=== PATIENT | male | born 1965 | race Two or more races ===

== ENCOUNTER 2025-02-17 13:36 | Inpatient (IN) | payer OTHER ==
[~2025-02-17] VITALS: Ht 170.2 cm; Wt 95.6 kg
[2025-02-17] VITALS (43 sets, daily range): BP systolic 82–130; BP diastolic 32–62; PULSE 60–89; RESP 10–25; TEMP 97.5–98.6; O2SAT 88–100
--- NOTE | 2025-02-17 13:56 | ED.PDOC ---
History of Present Illness HPI Comments 59-year-old male is brought in by ambulance from [facility] for chief complaint of generalized weakness. Per EMS report, patient began, suddenly, endorsing on feeling weak 20 minutes into his schedule dialysis session, today. On scene vitals were noted to have been stable within normal limits, with exception of patient being tachycardic and having a blood glucose 188. Patient was also noted to has been pale on scene. Significant medical history of ESRD w/HD on //WED, 3x CABG, DM , HTN, and left BKA s/p necrotizing ulcer wound and sepsis. Recent three day history of diarrhea, with associated dry mouth, and missing his dialysis session, this week. Patient denies having any chest pain, shortness a breath, nausea, vomiting, fever, chills, or further associated symptoms. Time Seen by MD: 13:40 Reviewed Notes: Nurses Notes, Ware Tester Notes, Medications, Allergies Allergies: Coded Allergies: Methoxyl Polyethylene Glycol-Epoeti (Verified Allergy, Intermediate, URTICARIA, 02/17/25) Information Source: Patient, Emergency Med Personnel Mode of Arrival: EMS Severity: Moderate Past Medical History PAST MEDICAL HISTORY: DM, ESRD (With hemodialysis on Wednesday, , and Wednesday), HTN Surgical History: CABG (3x) Social History Smoker: Non-Smoker Alcohol: Denies ETOH Use Drugs: Denies Drug Use Lives In: Home All Other Systems: Reviewed and Negative (Comprehensive review of systems are negative unless otherwise stated in HPI) Physical Exam General Appearance: Moderate Distress HEENT: Normal ENT Inspection, Pharynx Normal, TMs Normal Neck: Full Range of Motion, Non-Tender, Normal, Normal Inspection Respiratory: Chest Non-Tender, Lungs Clear, No Accessory Muscle Use, No Respiratory Distress, Normal Breath Sounds Cardiovascular: No Edema, No JVD, No Murmur, No Gallop, Normal Peripheral Pulses, Regular Rate/Rhythm Breast Exam: Deferred Gastrointestinal: Other (Darker stool possible GI bleed) Genitalia: Deferred Pelvic: Deferred Rectal: Deferred Extremities: Other (Left below-knee amputation) Musculoskeletal : Apperance: Normal Neurologic: Alert, No Motor Deficits, No Sensory Deficits Cerebellar Function: NOT DONE Reflexes: NOT DONE Skin: Normal Color Peripheral Pulses: 3+ Radial (R), 3+ Radial (L) Lymphatic: No Adenopathy Was a procedure done? Was a procedure done?: Yes Sedation Sedation?: Yes Informed consent obtained: Yes Sedation start time: 14:00 Sedation end time: 14:20 Sedation total time: 20min Central Line Recorder of insertion practice: Dot Compliance Manager Occupation of provider network analyst: Attending Physician Indication: Inability to obtain IV Room prepared for procedure: Yes Dot Compliance Manager performed hand hygien: Yes Maximal sterile barrier precau: Mask/Eye shield, Sterile gown, Cap, Sterlie gloves, Large sterlie drape Skin Preparation: Chlorhexidine gluconate, Providine iodine, Alcohol Skin preparation completely dr: Yes Insertion site: Right, Internal jugular Central line catheter type: [id number] dialysis Number of lumens: 3 Central line exchanged over a: Yes Antiseptic ointment applied to: Yes Post Assessment: Chest X-Ray, Proper placement Informed consent obtained: Yes Risks/benefits/alt described: Yes EKG EKG : Pulse Rate (adult): 83 [place]: Normal Cardiac Rhythm: NSR Block: None Hypertrophy: None ST: New (Depression) Differential Dx Considerations may include: Mi, PE, ACS, URI, pneumonia, angina, anxiety, gastritis, gastroenteritis, cholelithiasis, among other X-Ray, Labs, Meds, VS Vital Signs Date Time Temp Pulse Resp B/P (MAP) Pulse Ox O2 Delivery O2 Flow Rate FiO2 02/17/25 14:57 98.0 75 16 131/67 95 98.0 02/17/25 13:56 83 02/17/25 13:39 83 Lab Test 02/17/25 15:15 02/17/25 14:20 Range/Units Iron Level 86 65-175 ug/dL Total Iron Binding Capacity 120 L 250-425 ug/dL Percent Iron Saturation 71.7 H 20-55 % White Blood Count 8.5 4.4-10.8 10^3/uL Red Blood Count 1.45 L 4.5-5.90 10^6/uL Hemoglobin 5.0 *L 13.5-17.5 g/dL Hematocrit 14.6 L 41.0-53.0 % Mean Corpuscular Volume 100.7 H 80.0-100.0 fL Mean Corpuscular Hemoglobin 34.9 H 28.0-32.0 pg Mean Corpuscular Hemoglobin Concent 34.7 32.0-36.0 g/dL Red Cell Distribution Width 15.4 H 11.8-14.3 % Platelet Count 296 140-450 10^3/uL Mean Platelet Volume 8.5 6.9-10.8 fL Neutrophils (%) (Auto) 78.1 37.0-80.0 % Lymphocytes (%) (Auto) 13.7 10.0-50.0 % Monocytes (%) (Auto) 6.9 0.0-12.0 % Eosinophils (%) (Auto) 0.8 0.0-7.0 % Basophils (%) (Auto) 0.5 0.0-2.0 % Neutrophils # (Auto) 6.6 1.6-8.6 10 ^3/uL Lymphocytes # (Auto) 1.2 0.4-5.4 10 ^3/uL Monocytes # (Auto) 0.6 0-1.3 10 ^3/uL Eosinophils # (Auto) 0.1 0-0.8 10 ^3/uL Basophils # (Auto) 0 0-0.2 10 ^3/uL Nucleated Red Blood Cells 0.0 % Platelet Estimate Adequate Anisocytosis (manual) Slight Macrocytosis Slight Prothrombin Time 12.1 H 9.3-11.8 sec Prothrombin Time INR 1.16 H 0.9-1.15 Activated Partial Thromboplast Time 23.1 L 24.5-34.5 SEC Sodium Level 138 136-145 mmol/L Potassium Level 3.8 3.5-5.1 mmol/L Chloride Level 93 L 98-107 mmol/L Carbon Dioxide Level 28 20-31 mmol/L Anion Gap 17 H 5-15 Blood Urea Nitrogen 19 9-23 mg/dL Creatinine 3.90 H 0.700-1.30 mg/dL Glomerular Filtration Rate Calc 17 >90 mL/min BUN/Creatinine Ratio 4.9 L 10.0-20.0 Serum Glucose 70 L 74-106 mg/dL Calcium Level 8.4 L 8.7-10.4 mg/dL Total Bilirubin 0.3 0.2-1.0 mg/dL Aspartate Amino Transferase (AST) 17 13-40 U/L Alanine Aminotransferase (ALT) < 9 7-40 U/L Alkaline Phosphatase 87 46-116 U/L Troponin I High Sensitivity 1465 *H </=54 ng/L Total Protein 6.7 5.7-8.2 g/dL Albumin 3.4 3.2-4.8 g/dL Patient alert. Came in because of generalized weakness. Was at dialysis center. Answering questions. He does have GI bleed. Hemoglobin low. Was given blood. EKG does show STEMI. Contacted Cardiology. Could not give blood thinner. Cardiac marker elevated. Explained to the patient. Continue monitoring. Time of 1ST Reevaluation: 14:10 Reevaluation 1ST: Unchanged Patient Education/Counseling: Diagnosis, Treatment, Other (Need for admission) Family Education/Counseling: No Family Present SEPSIS Sepsis Screen Physician Orders Electrocardigram (02/17/25 13:55) Electrocardigram (02/17/25 14:55) Electrocardigram (02/17/25 16:55) Cl Left Heart Cath (02/17/25 14:03) Chest Portable (02/17/25 14:24) Glucose Blood (Accu-Chek Comfort Curve T (02/17/25 17:00) Insulin R (Human) (Insulin R) (02/17/25 17:00) Dextrose 50% Syringe (02/17/25 14:30) Communication Order (02/17/25 14:48) Type And Screen (02/17/25 14:48) Pantoprazole (Protonix) (02/18/25 10:00) * Gi Dvh [employer] (02/17/25 14:48) Packedcells -Active Bleeding (02/17/25 15:15) Communication Order (02/17/25 15:19) Packedcells -Active Bleeding (02/17/25 15:27) Vital Signs Date Time Temp Pulse Resp B/P (MAP) Pulse Ox O2 Delivery O2 Flow Rate FiO2 02/17/25 14:57 98.0 75 16 131/67 95 98.0 02/17/25 13:56 83 02/17/25 13:39 83 Laboratory Tests Test 02/17/25 14:20 White Blood Count 8.5 10^3/uL (4.4-10.8) Medications Medications Dose Ordered Sig/Kerri Route Start Time Stop Time Status Last Admin Dose Admin Iodixanol 64,000 mg STK-MED ONCE IV 02/17/25 14:08 02/17/25 14:06 DC 02/17/25 14:08 Departure 1 Departure Time of Disposition: 15:26 Impression: Primary Impression: STEMI (ST elevation myocardial infarction) Qualified Codes: I21.3 - ST elevation (STEMI) myocardial infarction of unspecified site Additional Impression: Symptomatic anemia Disposition: ADMITTED INPATIENT Admit to: ICU Condition: Guarded Critical Care Note Critical Care Time?: Yes (90 min-critical care time only) Stability Stability form required: No Heart Score Heart Score: Heart Score Response (Comments) Value History Moderate Suspicious [address]-Deviation 2 Age 45-64 1 Risk Factors >3 or Hx ASHD 2 Troponin >3 x's Normal limit 2 Total 8 I personally scribed for PAULINO DEAN MD ([email or web address]) on 02/17/25 at 13:55. Electronically submitted by Axel Gray ([email or web address]). I personally scribed for PAULION DEAN MD ([email or web address]) on 02/17/25 at 14:21. Electronically submitted by Axel Gray ([email or web address]). PAULINO DEAN MD Feb 17, 2025 13:55
[2025-02-17] MEDS: ANGIOMAX 250 MG VIAL IV ONE (14:07)
[2025-02-17] MEDS: SODIUM CHL 0.9% 0 ML ONE (14:08)
[2025-02-17] MEDS: IODIXANOL 320MG/ML 100ML BTL IV ONE (14:08)
[2025-02-17] MEDS: LIDOCAINE 2%HCL (LOCAL ANESTH.) INJ 20ML MDV ONE (14:08)
[2025-02-17] MEDS: fentaNYL CITRATE 100 MCG/2 ML VL ONE (14:08)
[2025-02-17] MEDS: MIDAZOLAM HCL 2MG/2ML 2ml VIAL (1mg/ml) ONE (14:08)
[2025-02-17 14:45] LABS: Hematocrit 14.6 % (41.0-53.0); Mean Corpuscular Hemoglobin 34.9 pg (28.0-32.0); Mean Corpuscular Volume 100.7 fL (80.0-100.0); Nucleated Red Blood Cells % 0.0 %
--- NOTE | 2025-02-17 14:49 | DVHHP2 ---
History of Present Illness Reason for Visit: Code STEMI History of Present Illness This is a 59-year-old male who is blind who was brought in by ambulance to dialysis center with chief complaint of generalized weakness. Per EMS report, patient began, suddenly, endorsing on feeling weak 20 minutes prior to completion of dialysis session today. On scene vitals were noted to have been stable within normal limits, with exception of patient being tachycardic and having a blood glucose 188. Patient was also noted to has been pale on scene. Significant medical history of ESRD w/HD on //WED, 3x CABG, DM , HTN, and left BKA s/p necrotizing ulcer wound and sepsis. Recent three day history of diarrhea, with associated dry mouth, and missing his dialysis session, this week. Upon evaluating the patient, large amount of bloody stool has been noted. The patient denies taking any anticoagulant nor had recent trauma/injury. When asked about bloody stool, the patient stated had no recollection of having bloody stool. He denies any recent surgery or procedures. Per ER physician Dr. Rodriguez who spoke with Dr. Aura Kelly regarding EKG, confirming STEMI. The patient is being prepped to go to dental lab technician, awaiting personnel to take patient to dental lab technician. The patient denied having chest pain during evaluation. The patient will be admitted under hospitalist care to the telemetry unit for continuous monitoring. The patient denies fever, chills, palpitation, chest pain, shortness of breath, nausea, vomiting, diarrhea, constipation and other associated symptoms. The plan has been discussed with the patient in which all questions concerns have been addressed Patient denies having any chest pain, shortness a breath, nausea, vomiting, fever, chills, or further associated symptoms. Cardiovascular: CAD, HTN Renal/: Chronic renal insuff Endocrine: Diabetes Past Surgical History: CABG Past Surgical History Left AKA Family History: None Smoke: No ALCOHOL: none Drugs: None Lives: with Family Domestic Violence: Neg Review of Systems Constitutional: Yes: Weakness Gastrointestinal: Other (Large amount of bloody stool) Skin: Other (Pale in color) Other Blind Exam Vital Signs Vital Signs Date Time Temp Pulse Resp B/P (MAP) Pulse Ox O2 Delivery O2 Flow Rate FiO2 02/17/25 13:56 83 General Appearance: Alert, Oriented X3, Cooperative, No acute distress HEENT: Atraumatic, PERRLA, Mucous membr. moist/pink Respiratory: Normal air movement Cardiovascular: Normal S1, Normal S2, No murmurs Abdominal: Normal bowel sounds, Soft, No tenderness, No hepatospenomegaly, No masses Extremities: No clubbing, No edema, Other (Left AKA) Neuro: Normal speech Psych/Mental Status: Mental status NL Labs/Xrays Labs Test 02/17/25 14:20 Range/Units SEPSIS Sepsis Screen Date sepsis recognized/suspect: Feb 17, 2025 Physician Orders Troponin-I Hs (02/17/25 13:49) Complete Blood Count (02/17/25 13:49) Comprehensive Metabolic Panel (02/17/25 13:49) PTPTT (02/17/25 13:49) Troponin-I Hs (02/17/25 14:49) Troponin-I Hs (02/17/25 16:49) Electrocardigram (02/17/25 13:55) Electrocardigram (02/17/25 14:55) Electrocardigram (02/17/25 16:55) Cl Left Heart Cath (02/17/25 14:03) Chest Portable (02/17/25 14:24) Vital Signs Date Time Temp Pulse Resp B/P (MAP) Pulse Ox O2 Delivery O2 Flow Rate FiO2 02/17/25 13:56 83 02/17/25 13:39 83 Laboratory Tests Test 02/17/25 14:20 White Blood Count Pending Assessment/Plan Assessment/Plan Generalized weakness--patient brought in by ambulance from dialysis center due to weakness The patient missed dialysis on , about 20 minutes upon completion of dialysis treatment today was when patient reported increased weakness Per ER physician Dr. Rodriguez reviewed EKG that was shown to Dr. Aura Kelly-confirm STEMI Upon evaluation patient alert oriented x4, pale in color denied chest pain Large amount of bloody stool noted The patient denies anticoagulants and recent injury/trauma/surgeries The patient takes aspirin The patient being prepped to go to dental lab technician IV hydration Type and screen for possible blood transfusion-the patient is agreeable with receiving blood transfusion if needed Reviewed CBC hemoglobin 5.0 Reviewed BMP RBC morphology pending Iron panel pending Transfuse packed red blood cell if hemoglobin less than 7.0 H&H q.6 hours Cardiology consult for evaluation and recommendation Echocardiogram pending ? Lower GI bleed hemoglobin 5.0 Denies drug and alcohol use Denies prior history IV Protonix now and daily Consult GI specialist for evaluation and recommendation Hypertension Continue to monitor Type 2 DM Regular insulin mild SS a.c. and HS Accu-Cheks per protocol Cardiac/1800 ADA diet ESRD on hemodialysis Wednesday//Wednesday The patient missed ; almost completed today's session but stopped 20 minutes early Consult head kiln operator Dr. Dewitt for evaluation and recommendation Reconcile home meds Labs in a.m. DVT prophylaxis-SCD PUD prophylaxis Discussed plan of care with the patient in which all questions concerns have been addressed Plan discussed with: Patient Date of Service: Feb 17, 2025 Billing Provider: ORIN SEBASTIAN Common Visit Codes: [id number] INP/OBS CARE (HIGH) ORIN SEBASTIAN Feb 17, 2025 14:49
[2025-02-17 14:50] LABS: Hemoglobin 5.0 g/dL (13.5-17.5)
--- NOTE | 2025-02-17 14:51 | DVH ---
INDICATION: CENTRAL LINE; SOB TECHNIQUE: Frontal view of the chest. COMPARISON: None FINDINGS: Right CVC tip in SVC. The heart and mediastinal contours are grossly unremarkable. There is no evide nce of pleural disease. The lungs are clear. The bony structures of the chest are intact without f racture. IMPRESSION: 1. No evidence of acute disease.
[2025-02-17 14:54] LABS: Albumin 3.4 g/dL (3.2-4.8); Alkaline Phosphatase 87 U/L (46-116); Anion Gap 17 (5-15); BUN/Creatinine Ratio 4.9 (10.0-20.0); Blood Urea Nitrogen 19 mg/dL (9-23); Carbon Dioxide 28 mmol/L (20-31); Potassium 3.8 mmol/L (3.5-5.1); Sodium 138 mmol/L (136-145); Total Protein 6.7 g/dL (5.7-8.2)
[2025-02-17 14:56] LABS: Chloride 93 mmol/L (98-107); Glucose 70 mg/dL (74-106)
[2025-02-17 14:57] LABS: Alanine Aminotransferase < 9 U/L (7-40); Bilirubin, Total 0.3 mg/dL (0.2-1.0); Calcium 8.4 mg/dL (8.7-10.4)
[2025-02-17 15:08] LABS: INR 1.16 (0.9-1.15); Partial Thromboplastin Time 23.1 SEC (24.5-34.5); Prothrombin Time 12.1 sec (9.3-11.8)
[2025-02-17 15:29] LABS: Anisocytosis Slight; Macrocytosis Slight
[2025-02-17 15:40] LABS: Iron 86.0 ug/dL (65-175)
[2025-02-17 15:43] LABS: Total Iron Binding Capacity 120.0 ug/dL (250-425)
[2025-02-17] MEDS ORDERED: MORPHINE SULFATE INJ 2 MG/ml SYRG IV PRN (16:00)
[2025-02-17] MEDS ORDERED: NITROGLYCERIN 0.4 MG SL TAB SL PRN (16:00)
[2025-02-17] MEDS: HEPARIN SODIUM (PORCINE) 5000 UNITS/ML 1ML VIAL IV ONE (17:48)
[2025-02-17] MEDS: PANTOPRAZOLE 40 MG/10 ML VIAL INJ IV ONE (18:00)
[2025-02-17] MEDS: InsuLIN REG 1unit/0.01ml Soln (100units/ml) SC SCH (18:20)
[2025-02-17] MEDS: ACCU-CHEK COMFORT CURVE STRIP VI SCH (18:20)
[2025-02-17] MEDS: DEXTROSE (50%) 50ML SYRG IV PRN (18:21)
[2025-02-17] MEDS: PANTOPRAZOLE 40mg/50ML NS AE 50 ML IV SCH (18:57)
--- NOTE | 2025-02-17 20:05 | DVHINCON2 ---
Date of service: Feb 17, 2025 Referring Physician jazmyn verma Reason for Consultation Rectal bleeding black dark red and black stools History of Present Illness This 79-year-old male with a history of diabetes hypertension chronic renal failure on dialysis admitted with complaints of weakness. Apparently he was in the dialysis and he felt weak and tired and hence was found to be tachycardic with a blood glucose of 188 and was found to be extremely pale and sent to the emergency room and from there admitted. History of coronary artery bypass surgery diabetes hypertension with left knee amputation with status post necrotizing ulcer in the bone and sepsis in the past. No sudden having diarrhea and large amount had some large amount of black stools as well as bloody stools. Patient denies any anti taking any anticoagulants no history of any unusual food ingestion no hematemesis no melena. Was found to have high troponin and 1st seen by but got an EKG and was confirmed to be STEMI and any and sent to the laborer cook house and was tones have known we diffuse vessel disease. Patient denies to be on any NSAIDs or anticoagulants at home except for during the dialysis Past Medical History Coronary artery disease hypertension diabetes Past Surgical History CABG Family History Noncontributory Social History Denies smoking or drinking Allergies: Coded Allergies: Methoxyl Polyethylene Glycol-Epoeti (Verified Allergy, Intermediate, FELIX HINES, 02/17/25) Current Medications Current Medications Medications (Trade) Dose Ordered Sig/Kerri Route PRN Reason Start Time Stop Time Status Last Admin Diagnostic Test (Pha) (Accu-Chek Comfort Curve T) 1 strip ACHS 02/17/25 17:00 02/17/25 18:20 Insulin Human Regular (InsuLIN R) ACHS SC 02/17/25 17:00 Dextrose 50 ml UD PRN IV Blood Sugar LESS THAN 60 02/17/25 14:30 02/17/25 18:21 Pantoprazole Sodium (Protonix) 40 mg DAILY IV 02/18/25 10:00 Nitroglycerin (Ntrostat Sublingual) 0.4 mg Q5MINP PRN SL FOR CHEST PAIN 02/17/25 16:00 Morphine Sulfate 2 mg Q30M PRN IV FOR CHEST PAIN 02/17/25 16:00 Pantoprazole Sodium 50 ml @ 10 mls/hr Q5H IV 02/17/25 18:00 02/17/25 18:57 Octreotide Acetate 500 mcg/ Sodium Chloride 100 ml @ 10 mls/hr Q10H IV 02/17/25 18:00 Review of Systems Noncontributory Vital Signs Vital Signs Date Time Temp Pulse Resp B/P (MAP) Pulse Ox O2 Delivery O2 Flow Rate FiO2 02/17/25 19:00 89 14 83/43 (56) 93 02/17/25 18:55 97.8 97.8 02/17/25 16:43 Room Air* 0 21 Physical Exam Moderately built and nourished male in no acute distress Vitals stable Lungs clear Abdomen is soft nontender no masses no rigidity no guarding Neurological grossly intact Labs/Diagnostic Data Labs Test 02/17/25 18:50 02/17/25 18:08 02/17/25 15:15 02/17/25 14:20 Range/Units Stool Occult Blood Positive Negative Stool Occult Blood Sample #3 Negative POC Glucose 69 L 70-106 mg/dl Iron Level 86 65-175 ug/dL Total Iron Binding Capacity 120 L 250-425 ug/dL Percent Iron Saturation 71.7 H 20-55 % White Blood Count 8.5 4.4-10.8 10^3/uL Red Blood Count 1.45 L 4.5-5.90 10^6/uL Hemoglobin 5.0 *L 13.5-17.5 g/dL Hematocrit 14.6 L 41.0-53.0 % Mean Corpuscular Volume 100.7 H 80.0-100.0 fL Mean Corpuscular Hemoglobin 34.9 H 28.0-32.0 pg Mean Corpuscular Hemoglobin Concent 34.7 32.0-36.0 g/dL Red Cell Distribution Width 15.4 H 11.8-14.3 % Platelet Count 296 140-450 10^3/uL Mean Platelet Volume 8.5 6.9-10.8 fL Neutrophils (%) (Auto) 78.1 37.0-80.0 % Lymphocytes (%) (Auto) 13.7 10.0-50.0 % Monocytes (%) (Auto) 6.9 0.0-12.0 % Eosinophils (%) (Auto) 0.8 0.0-7.0 % Basophils (%) (Auto) 0.5 0.0-2.0 % Neutrophils # (Auto) 6.6 1.6-8.6 10 ^3/uL Lymphocytes # (Auto) 1.2 0.4-5.4 10 ^3/uL Monocytes # (Auto) 0.6 0-1.3 10 ^3/uL Eosinophils # (Auto) 0.1 0-0.8 10 ^3/uL Basophils # (Auto) 0 0-0.2 10 ^3/uL Nucleated Red Blood Cells 0.0 % Platelet Estimate Adequate Anisocytosis (manual) Slight Macrocytosis Slight Prothrombin Time 12.1 H 9.3-11.8 sec Prothrombin Time INR 1.16 H 0.9-1.15 Activated Partial Thromboplast Time 23.1 L 24.5-34.5 SEC Sodium Level 138 136-145 mmol/L Potassium Level 3.8 3.5-5.1 mmol/L Chloride Level 93 L 98-107 mmol/L Carbon Dioxide Level 28 20-31 mmol/L Anion Gap 17 H 5-15 Blood Urea Nitrogen 19 9-23 mg/dL Creatinine 3.90 H 0.700-1.30 mg/dL Glomerular Filtration Rate Calc 17 >90 mL/min BUN/Creatinine Ratio 4.9 L 10.0-20.0 Serum Glucose 70 L 74-106 mg/dL Calcium Level 8.4 L 8.7-10.4 mg/dL Total Bilirubin 0.3 0.2-1.0 mg/dL Aspartate Amino Transferase (AST) 17 13-40 U/L Alanine Aminotransferase (ALT) < 9 7-40 U/L Alkaline Phosphatase 87 46-116 U/L Troponin I High Sensitivity 1465 *H </=54 ng/L Total Protein 6.7 5.7-8.2 g/dL Albumin 3.4 3.2-4.8 g/dL Assessment 59-year-old house diabetic with blind admitted with a weakness tiredness and anemia and blood in the stool black as well as we will add a low history of any ulcer disease Clinical impression STEMI status post coronary angiogram diffuse disease With black stools weakness tiredness Clinical impression possible ulcer disease gastritis with chronic renal failure diabetes and coronary artery disease status post STEMI Slowly start we will transfuse as well as with recommend Protonix and Sandostatin drip for now Plan/Recommendation Slowly start we will transfuse as well as with recommend Protonix and Sandostatin drip for now Endoscopy upper GI tract tomorrow Transfuse Monitor the hemoglobin Thank you Dr. Jenn Plan discussed with: Patient ELISA ABRAHAM MD Feb 17, 2025 20:05
[2025-02-17] MEDS: NOREPINEPHRINE 8 MG/250ML KIT 250 ML IV SCH (20:30)
[2025-02-17] MEDS: OCTREOTIDE ACETATE 500 MCG in SODIUM CHL 0.9% 99 ML IV SCH (21:28)
--- NOTE | 2025-02-17 23:37 | DVHINCON2 ---
Date of service: Feb 17, 2025 Referring Physician Nancy Reason for Consultation STEMI History of Present Illness This is a 59-year-old blind male with a PMH of ESRD w/HD on //WED, 3x CABG, DM , HTN, and left BKA s/p necrotizing ulcer wound and sepsis who was brought in by ambulance from dialysis center due to complaint of generalized weakness. Per EMS , patient began, suddenly, endorsing on feeling weak 20 minutes prior to completion of dialysis today. On scene vitals were noted to have been stable within normal limits, with exception of patient being tachycardic and having a blood glucose 188. Patient was also noted to has been pale on scene. Patient also recent three day history of diarrhea, with associated dry mouth, and missing his dialysis session, this week. Upon evaluating the patient, large amount of bloody stool has been noted. Patient stated had no recollection of having bloody stool. He denies any recent surgery or procedures. EKG demonstrated STEMI and a code STEMI was called. I evaluated the patient within a few minutes. HGB 5, HCT 14.6, GLUC 60, TROP 1465. Chest x-ray shows NAD. Patient was admitted to the hospital ICU. I am asked to consult on this patient. Allergies: Coded Allergies: Methoxyl Polyethylene Glycol-Epoeti (Verified Allergy, Intermediate, URTICARIA, 02/17/25) Current Medications Current Medications Medications (Trade) Dose Ordered Sig/Kerri Route PRN Reason Start Time Stop Time Status Last Admin Diagnostic Test (Pha) (Accu-Chek Comfort Curve T) 1 strip ACHS 02/17/25 17:00 02/17/25 22:09 Insulin Human Regular (InsuLIN R) ACHS SC 02/17/25 17:00 Dextrose 50 ml UD PRN IV Blood Sugar LESS THAN 60 02/17/25 14:30 02/17/25 22:05 Pantoprazole Sodium (Protonix) 40 mg DAILY IV 02/18/25 10:00 Nitroglycerin (Ntrostat Sublingual) 0.4 mg Q5MINP PRN SL FOR CHEST PAIN 02/17/25 16:00 Morphine Sulfate 2 mg Q30M PRN IV FOR CHEST PAIN 02/17/25 16:00 Pantoprazole Sodium 50 ml @ 10 mls/hr Q5H IV 02/17/25 18:00 02/17/25 21:57 Octreotide Acetate 500 mcg/ Sodium Chloride 100 ml @ 10 mls/hr Q10H IV 02/17/25 18:00 02/17/25 21:28 Norepinephrine Bitartrate 250 ml @ 3.75 mls/hr Q24H IV 02/17/25 20:30 Review of Systems All Other Systems: Reviewed and Negative (Comprehensive review of systems are negative unless otherwise stated in HPI) Vital Signs Vital Signs Date Time Temp Pulse Resp B/P (MAP) Pulse Ox O2 Delivery O2 Flow Rate FiO2 02/17/25 23:02 98.2 74 19 113/56 98.2 02/17/25 19:00 93 02/17/25 16:43 Room Air* 0 21 Physical Exam GENERAL: Alert and oriented x 3. No acute distress. EYES: PERRL, EOMI. Anicteric. HENT: Moist mucous membranes. LUNGS: Clear to auscultation bilaterally. CARDIOVASCULAR: Regular rate and rhythm. ABDOMEN: Soft, nontender and nondistended. EXTREMITIES: Left AKA. NEUROLOGIC: No focal neurological deficits. SKIN: Warm, dry. Labs/Diagnostic Data Labs Test 02/17/25 23:06 02/17/25 18:50 02/17/25 15:15 02/17/25 14:20 Range/Units Stool Occult Blood Positive Negative Stool Occult Blood Sample #3 Negative Iron Level 86 65-175 ug/dL Total Iron Binding Capacity 120 L 250-425 ug/dL Percent Iron Saturation 71.7 H 20-55 % White Blood Count 8.5 4.4-10.8 10^3/uL Red Blood Count 1.45 L 4.5-5.90 10^6/uL Hemoglobin 5.0 *L 13.5-17.5 g/dL Hematocrit 14.6 L 41.0-53.0 % Mean Corpuscular Volume 100.7 H 80.0-100.0 fL Mean Corpuscular Hemoglobin 34.9 H 28.0-32.0 pg Mean Corpuscular Hemoglobin Concent 34.7 32.0-36.0 g/dL Red Cell Distribution Width 15.4 H 11.8-14.3 % Platelet Count 296 140-450 10^3/uL Mean Platelet Volume 8.5 6.9-10.8 fL Neutrophils (%) (Auto) 78.1 37.0-80.0 % Lymphocytes (%) (Auto) 13.7 10.0-50.0 % Monocytes (%) (Auto) 6.9 0.0-12.0 % Eosinophils (%) (Auto) 0.8 0.0-7.0 % Basophils (%) (Auto) 0.5 0.0-2.0 % Neutrophils # (Auto) 6.6 1.6-8.6 10 ^3/uL Lymphocytes # (Auto) 1.2 0.4-5.4 10 ^3/uL Monocytes # (Auto) 0.6 0-1.3 10 ^3/uL Eosinophils # (Auto) 0.1 0-0.8 10 ^3/uL Basophils # (Auto) 0 0-0.2 10 ^3/uL Nucleated Red Blood Cells 0.0 % Platelet Estimate Adequate Anisocytosis (manual) Slight Macrocytosis Slight Prothrombin Time 12.1 H 9.3-11.8 sec Prothrombin Time INR 1.16 H 0.9-1.15 Activated Partial Thromboplast Time 23.1 L 24.5-34.5 SEC Sodium Level 138 136-145 mmol/L Potassium Level 3.8 3.5-5.1 mmol/L Chloride Level 93 L 98-107 mmol/L Carbon Dioxide Level 28 20-31 mmol/L Anion Gap 17 H 5-15 Blood Urea Nitrogen 19 9-23 mg/dL Creatinine 3.90 H 0.700-1.30 mg/dL Glomerular Filtration Rate Calc 17 >90 mL/min BUN/Creatinine Ratio 4.9 L 10.0-20.0 Serum Glucose 70 L 74-106 mg/dL Calcium Level 8.4 L 8.7-10.4 mg/dL Total Bilirubin 0.3 0.2-1.0 mg/dL Aspartate Amino Transferase (AST) 17 13-40 U/L Alanine Aminotransferase (ALT) < 9 7-40 U/L Alkaline Phosphatase 87 46-116 U/L Troponin I High Sensitivity 1465 *H </=54 ng/L Total Protein 6.7 5.7-8.2 g/dL Albumin 3.4 3.2-4.8 g/dL Assessment STEMI. Generalized weakness. GI bleed. Hypertension. Type 2 DM. ESRD on hemodialysis. Plan/Recommendation I agree with your ongoing assessment and care of plan. Emergency cardiac cath. Risks and benefits discussed with patient. Echocardiogram. IVFs. Morphine fot pain management. GI prophylactics. Nitro SL. Vasopressors for hemodynamic support. Additional plan as per the hospital course. Critical care time of 90 minutes provided to include time spent evaluation of patient at bedside, when appropriate patient/family education for diagnosis, treatment plan, review of pertinent medical information and discussion of care with specialty providers and PCP. Plan discussed with: Patient CHU NIELSEN MD Feb 17, 2025 23:29
[2025-02-18] VITALS (80 sets, daily range): BP systolic 103–162; BP diastolic 48–78; PULSE 59–99; RESP 8–28; TEMP 97.9–98.8; O2SAT 83–100
[2025-02-18 01:08] LABS: Hematocrit 21.6 % (41.0-53.0); Hemoglobin 7.3 g/dL (13.5-17.5)
[2025-02-18 05:56] LABS: Potassium 4.3 mmol/L (3.5-5.1)
[2025-02-18 05:57] LABS: Anion Gap 15 (5-15); Carbon Dioxide 28 mmol/L (20-31)
[2025-02-18 06:02] LABS: BUN/Creatinine Ratio 5.3 (10.0-20.0); Glucose 79 mg/dL (74-106)
[2025-02-18 06:04] LABS: Hemoglobin 7.2 g/dL (13.5-17.5)
[2025-02-18 06:06] LABS: Sodium 136 mmol/L (136-145)
[2025-02-18 06:07] LABS: Chloride 93 mmol/L (98-107)
[2025-02-18 06:08] LABS: Blood Urea Nitrogen 27 mg/dL (9-23); Calcium 8.2 mg/dL (8.7-10.4)
[2025-02-18 06:11] LABS: Hematocrit 20.7 % (41.0-53.0); Mean Corpuscular Hemoglobin 33.5 pg (28.0-32.0); Mean Corpuscular Volume 96.3 fL (80.0-100.0); Nucleated Red Blood Cells % 0.1 %
[2025-02-18 06:13] LABS: INR 1.14 (0.9-1.15); Prothrombin Time 11.9 sec (9.3-11.8)
[2025-02-18] MEDS: PANTOPRAZOLE 40 MG/10 ML VIAL INJ IV SCH (07:00)
[2025-02-18] MEDS ORDERED: PROPOFOL 10 MG/ML 20 ML IV ONE (09:33)
[2025-02-18] MEDS ORDERED: fentaNYL CITRATE 100 MCG/2 ML VL ONE (09:33)
--- NOTE | 2025-02-18 10:52 | DVHPN2 ---
Progress Note - Dictate Date Seen: Feb 18, 2025 Medical Necessity Reason Pt with a Central, PICC or Fol: No Subjective Doing fair no chest pains no shortness of breath no gross bleeding vital signs Vital Sign Date Time Temp Pulse Resp B/P (MAP) Pulse Ox O2 Delivery O2 Flow Rate FiO2 02/18/25 08:45 80 18 109/48 (68) 02/18/25 08:15 100 02/18/25 08:00 97.9 97.9 02/18/25 07:30 Room Air* 0 21 Total Intake and Output 02/17/25 02/17/25 02/18/25 15:00 23:00 07:00 Intake Total 355 ml 460 ml Output Total 0 ml Balance 355 ml 460 ml medications Current Medications Medications Dose Ordered Sig/Kerri Route Start Time Stop Time Status Last Admin Dose Admin Diagnostic Test (Pha) 1 strip ACHS 02/17/25 17:00 02/18/25 06:40 1 STRIP Insulin Human Regular ACHS SC 02/17/25 17:00 Dextrose 50 ml UD PRN IV 02/17/25 14:30 02/17/25 22:05 50 ML Pantoprazole Sodium 40 mg DAILY IV 02/18/25 10:00 Nitroglycerin 0.4 mg Q5MINP PRN SL 02/17/25 16:00 Morphine Sulfate 2 mg Q30M PRN IV 02/17/25 16:00 Pantoprazole Sodium 50 ml @ 10 mls/hr Q5H IV 02/17/25 18:00 02/18/25 06:51 10 MLS/HR Octreotide Acetate 500 mcg/ Sodium Chloride 100 ml @ 10 mls/hr Q10H IV 02/17/25 18:00 02/18/25 05:14 10 MLS/HR Norepinephrine Bitartrate 250 ml @ 3.75 mls/hr Q24H IV 02/17/25 20:30 objective Abdomen is soft nontender no mass Hemoglobin is 7.2 after 2 units of transfusion Unable to to the scope because all the scope sites were all not functioning in the procedure had to be canceled after food in the scope into the stomach this was for scope apparently failed and the ulcer stone failed and procedure had to be cancelled laboratory and microbiology Laboratory Tests 02/18/25 05:16 Test 02/18/25 05:16 Range/Units Serum Glucose 79 74-106 mg/dL Assessment/Plan 59-year-old house diabetic with blind admitted with a weakness tiredness and anemia and blood in the stool black as well as we will add a low history of any ulcer disease Clinical impression Hepatic possible ulcer versus gastritis or esophageal problems Colon diseases can not be excluded also but less likely STEMI status post coronary angiogram diffuse disease With black stools weakness tiredness Portion was scheduled for the endoscopy and as soon as endoscopy was started the the light source and the system failed and the procedure had to be canceled the scope had to be withdrawn and procedure canceled the visualized portions of the in the esophagus was unremarkable but otherwise stomach had some gastric contents which works cleaning which were getting cleaned out been the scope failed We will try to really schedule as soon as the scope is cystoscope and system are back to life Thank you Dr. Barajas Plan discussed with: Patient ELISA BARAJAS MD Feb 18, 2025 10:52
--- NOTE | 2025-02-18 11:10 | DVHOP2 ---
Operative Report DATE OF PROCEDURE: 02/18/25 INDICATIONS FOR THE PROCEDURE: GI bleeding PROCEDURE PERFORMED: 1. Esophagogastroduodenoscopy incomplete because of system failure POSTOPERATIVE DIAGNOSIS: Normal esophagus mild gastric stasis incomplete exam because assist or failure INFORMED CONSENT: The risks and benefits and alternatives were explained to the patient and informed consent was obtained. PROCEDURE IN DETAIL: The patient was kept NPO after midnight. In the endoscopy room, he was given MAC to get him sedated. Olympus gastroscope was passed through the oropharynx into the stomach and the findings were as follows. As soon as the scope was in the stomach this system failed and repeated attempts connected to reconnect in her everything else were unsuccessful in the procedure had to be abandoned so on either part of the stomach was seen Ms. Lot of gastric as secretion which was getting suctioned out when the system failed so not see the lumen in a per properly as well as got not complete the scope Esophagus: Normal no varices seen no bleeding Stomach: Mild gastric stasis which was could not cleaned out with a systolic failed so incomplete exam Duodenum not seen because of system failure Endoscopic impression incomplete examination because of the persistent failure no esophageal varices Suggestions With the system is back to normal we will recommend an EGD evaluation especially with a low hemoglobin and GI bleed This procedure was incomplete and has to be repeated when their system is back to normal Thank you for asking me to take part in the care of this pleasant patient ELISA Walker MD Feb 18, 2025 11:10
--- NOTE | 2025-02-18 14:18 | DVHPN2 ---
Assessment/Plan Assessment/Plan Subjective 59 yo M with ESRD on dialysis, h/o CABG, s/p left BKA presents with generalized weakness. Undergoes dialysis three times a week on Wednesday, , and Wednesday. Patient was found to have generalized weakness, which led to further evaluation. During the workup, he was taken to the cardiac catheterization lab, though the results of this procedure are not yet available. Pt did not receive epogen per patient, used to but not getting it currently. Not sure about melena or hematochezia as pt is blind. but no NV. has chronic diarrhea taking imodium w/o prior gI workup. s/p transfusion. unstable Objective Physical exam AOx4 Clear breath sounds S1 S2 RRR Abdomen soft nontender L BKA Labs ekg imaging reviewed Assessment & Plan STEMI, no stent placed hx of CABG ESRD on dialysis TTS davita Left above-knee amputation Generalized weakness GIB? severe anemia likely chronic eliud; disease blind chronic diarrhea HD per renal pending cath result, looks like diffuse disease EGD not done, plan for tomorrow ok to escalate diet medical management ofr CAD rend R/R dc octreotide, keep protonix drip diet renal dvt ppx lovenox full code crit care time 65 minutes Plan discussed with: Patient Date of Service: Feb 18, 2025 Billing Provider: TRINITY MCBRIDE MD Common Visit Codes: 29432-EPYDHHQI CARE 30-74 MIN TRINITY MCBRIDE MD Feb 18, 2025 14:18
--- NOTE | 2025-02-18 16:42 | DVHINCON2 ---
Date of service: Feb 18, [address] Givens Reason for Consultation End-stage kidney disease History of Present Illness This is a 59-year-old male with history of end-stage kidney disease on hemodialysis brought into the emergency room from the dialysis center because of generalized weakness. On arrival to the emergency room patient noted to have large bloody stool. Also noted to have ST elevation FL. Was taken to the [facility] emergently. Patient also was transfused 4 units of PRBCs. Was scheduled for EGD today but which could not be completed because of damaged scope. Nephrology consulted for continuation of dialysis. He was not able to complete his dialysis session yesterday. Dialysis was ordered for today which he completed with no acute issues. Ultrafiltration of 3 L today. Past Medical History End-stage kidney disease on hemodialysis Coronary artery disease Hypertension Type 2 diabetes Past Surgical History CABG Status post left BKA Dialysis access Family History: Patient reports no known family medical history. Family History Noncontributory Social History No active history of smoking, alcohol or drug abuse Allergies: Coded Allergies: Methoxyl Polyethylene Glycol-Epoeti (Verified Allergy, Intermediate, URTICARIA, 02/17/25) Current Medications Current Medications Medications (Trade) Dose Ordered Sig/Kerri Route PRN Reason Start Time Stop Time Status Last Admin Diagnostic Test (Pha) (Accu-Chek Comfort Curve T) 1 strip ACHS 02/17/25 17:00 02/18/25 11:34 Insulin Human Regular (InsuLIN R) ACHS SC 02/17/25 17:00 Pantoprazole Sodium (Protonix) 40 mg DAILY IV 02/18/25 10:00 Pantoprazole Sodium 50 ml @ 10 mls/hr Q5H IV 02/17/25 18:00 02/18/25 12:30 Octreotide Acetate 500 mcg/ Sodium Chloride 100 ml @ 10 mls/hr Q10H IV 02/17/25 18:00 02/18/25 05:14 Norepinephrine Bitartrate 250 ml @ 3.75 mls/hr Q24H IV 02/17/25 20:30 Review of Systems 12 point review of system negative except as stated in the HPI Vital Signs Vital Signs Date Time Temp Pulse Resp B/P (MAP) Pulse Ox O2 Delivery O2 Flow Rate FiO2 02/18/25 14:00 90 12 122/61 (81) 02/18/25 12:20 100 02/18/25 12:00 98.6 98.6 02/18/25 11:00 Room Air 0 94 Physical Exam Awake alert oriented x3 HEENT: Normocephalic, no JVD Lungs: Bilateral good air entry CVS: S1, S2 regular rate rhythm Abdomen: Soft, bowel sounds present ROAD CONDUCTOR: No focal deficits Extremities: Status post left BKA Labs/Diagnostic Data Labs Test 02/18/25 11:27 02/18/25 05:26 02/18/25 05:16 02/17/25 18:50 Range/Units POC Glucose 104 70-106 mg/dl White Blood Count 7.4 4.4-10.8 10^3/uL Red Blood Count 2.15 L 4.5-5.90 10^6/uL Hemoglobin 7.2 L 13.5-17.5 g/dL Hematocrit 20.7 L 41.0-53.0 % Mean Corpuscular Volume 96.3 # 80.0-100.0 fL Mean Corpuscular Hemoglobin 33.5 H 28.0-32.0 pg Mean Corpuscular Hemoglobin Concent 34.8 32.0-36.0 g/dL Red Cell Distribution Width 15.9 H 11.8-14.3 % Platelet Count 245 140-450 10^3/uL Mean Platelet Volume 8.5 6.9-10.8 fL Neutrophils (%) (Auto) 72.6 37.0-80.0 % Lymphocytes (%) (Auto) 14.9 10.0-50.0 % Monocytes (%) (Auto) 10.9 0.0-12.0 % Eosinophils (%) (Auto) 1.0 0.0-7.0 % Basophils (%) (Auto) 0.6 0.0-2.0 % Neutrophils # (Auto) 5.3 1.6-8.6 10 ^3/uL Lymphocytes # (Auto) 1.1 0.4-5.4 10 ^3/uL Monocytes # (Auto) 0.8 0-1.3 10 ^3/uL Eosinophils # (Auto) 0.1 0-0.8 10 ^3/uL Basophils # (Auto) 0 0-0.2 10 ^3/uL Nucleated Red Blood Cells 0.1 % Prothrombin Time 11.9 H 9.3-11.8 sec Prothrombin Time INR 1.14 0.9-1.15 Sodium Level 136 136-145 mmol/L Potassium Level 4.3 3.5-5.1 mmol/L Chloride Level 93 L 98-107 mmol/L Carbon Dioxide Level 28 20-31 mmol/L Anion Gap 15 5-15 Blood Urea Nitrogen 27 H 9-23 mg/dL Creatinine 5.08 H 0.700-1.30 mg/dL Glomerular Filtration Rate Calc 12 >90 mL/min BUN/Creatinine Ratio 5.3 L 10.0-20.0 Serum Glucose 79 74-106 mg/dL Calcium Level 8.2 L 8.7-10.4 mg/dL Stool Occult Blood Positive Negative Stool Occult Blood Sample #3 Negative Test 02/17/25 15:15 02/17/25 14:20 Range/Units Iron Level 86 65-175 ug/dL Total Iron Binding Capacity 120 L 250-425 ug/dL Percent Iron Saturation 71.7 H 20-55 % Platelet Estimate Adequate Anisocytosis (manual) Slight Macrocytosis Slight Activated Partial Thromboplast Time 23.1 L 24.5-34.5 SEC Total Bilirubin 0.3 0.2-1.0 mg/dL Aspartate Amino Transferase (AST) 17 13-40 U/L Alanine Aminotransferase (ALT) < 9 7-40 U/L Alkaline Phosphatase 87 46-116 U/L Troponin I High Sensitivity 1465 *H </=54 ng/L Total Protein 6.7 5.7-8.2 g/dL Assessment End-stage kidney disease on hemodialysis ST-elevation [place] Anemia secondary to GI bleed History of coronary artery disease status post CABG Type 2 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 Ultrafiltration of 3 L. Status post left heart catheterization results of which are pending We will continue dialysis on TTS schedule. GI workup for anemia of blood loss. Plan discussed with: Patient SIOMARA THAYER MD Feb 18, 2025 16:42
--- NOTE | 2025-02-18 22:59 | DVHPN2 ---
Progress Note - Dictate Date Seen: Feb 18, 2025 Medical Necessity Reason Pt with a Central, PICC or Fol: No Subjective Patient was seen and evaluated in follow up in the [facility]. Patient underwent esophagogastroduodenoscopy by Dr. Barajas. Procedure was incomplete because of system failure incomplete examination because of the persistent failure no esophageal varices. 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 vital signs Vital Sign Date Time Temp Pulse Resp B/P (MAP) Pulse Ox O2 Delivery O2 Flow Rate FiO2 02/18/25 12:00 98.2 90 11 133/59 (83) 93 98.2 02/18/25 11:00 Room Air 0 94 Total Intake and Output 02/17/25 02/17/25 02/18/25 15:00 23:00 07:00 Intake Total 355 ml 460 ml Output Total 0 ml Balance 355 ml 460 ml medications Current Medications Medications Dose Ordered Sig/Kerri Route Start Time Stop Time Status Last Admin Dose Admin Diagnostic Test (Pha) 1 strip ACHS 02/17/25 17:00 02/18/25 11:34 1 STRIP Insulin Human Regular ACHS SC 02/17/25 17:00 Dextrose 50 ml UD PRN IV 02/17/25 14:30 02/17/25 22:05 50 ML Pantoprazole Sodium 40 mg DAILY IV 02/18/25 10:00 Nitroglycerin 0.4 mg Q5MINP PRN SL 02/17/25 16:00 Morphine Sulfate 2 mg Q30M PRN IV 02/17/25 16:00 Pantoprazole Sodium 50 ml @ 10 mls/hr Q5H IV 02/17/25 18:00 02/18/25 06:51 10 MLS/HR Octreotide Acetate 500 mcg/ Sodium Chloride 100 ml @ 10 mls/hr Q10H IV 02/17/25 18:00 02/18/25 05:14 10 MLS/HR Norepinephrine Bitartrate 250 ml @ 3.75 mls/hr Q24H IV 02/17/25 20:30 objective GENERAL: Alert and oriented x 3. No acute distress. EYES: PERRL, EOMI. Anicteric. HENT: Moist mucous membranes. LUNGS: Clear to auscultation bilaterally. CARDIOVASCULAR: Regular rate and rhythm. ABDOMEN: Soft, nontender and nondistended. EXTREMITIES: Left AKA. NEUROLOGIC: No focal neurological deficits. SKIN: Warm, dry. laboratory and microbiology Laboratory Tests 02/18/25 05:16 Test 02/18/25 05:16 Range/Units Serum Glucose 79 74-106 mg/dL Problem List STEMI. Generalized weakness. GI bleed. Hypertension. Type 2 DM. ESRD on hemodialysis. Assessment/Plan Continued all current supportive medical care. IVFs. Nitro SL. Echocardiogram. GI prophylactics. Morphine for pain management. Additional plan as per the hospital course. Critical care time of 45 minutes provided to include time spent evaluation of patient at bedside, when appropriate patient/family education for diagnosis, treatment plan, review of pertinent medical information and discussion of care with specialty providers and PCP. Plan discussed with: Patient CHU NIELSEN MD Feb 18, 2025 14:23
[2025-02-19] VITALS (27 sets, daily range): BP systolic 114–146; BP diastolic 59–77; PULSE 74–96; RESP 10–35; TEMP 98.1–99; O2SAT 94–100
--- NOTE | 2025-02-19 06:20 | DVHOP ---
DATE OF SURGERY: 02/17/2025 TECHNIQUES PERFORMED: * Code STEMI. * Insertion of 6-Latvian arterial line from the right femoral artery. * Management of conscious sedation. * left heart cath. * Left ventriculogram. * [place]asta selective left and right coronary angiography. * Left iliofemoral artery angiography. * Left internal mammary angiography. * Venous bypass graft angiography x2. * Venous bypass graft angiography of obtuse marginal artery. * Venous bypass angiography with a stump found of posterior descending artery (stump of the right coronary artery). * Ascending aortogram. * Right iliofemoral artery angiography. * Arteriotomy, Angio-Seal of the right femoral artery. COMPLICATIONS: None. ASSISTANTS: Assisted by Jai Calloway Galle and Timbo. INDICATIONS: As follows: The patient came here with a chest pain as a result of short of breath. He had a history of previous bypass graft surgery and he was found to have an ST-segment depression noted diffusely into the entire inferolateral lead. DESCRIPTION OF PROCEDURE: Risks and benefits discussed. He is also legally blind and he also has a left leg amputation. He had been brought to the laborer livestock. The right groin was shaved, was cleaned with soap and Betadine. A 6-Latvian arterial line was placed in a standard manner. We have hemoglobin noted to be in the range of 5 g%. We have put the JL4 catheter and the left angio was done with the help of a JL4 catheter. The right angiography done with the help of a similar catheter. Venous bypass graft angiography of the obtuse marginal artery was obtained with the help of catheter. The left intramammary angiography was done after we put a glidewire. After that, we have put a multipurpose catheter in the venous bypass graft angiography ostium of the right coronary artery has been obtained. With the help of the JL4 catheter, we were also able to do left heart cath and the left angiogram. The right iliofemoral artery angiography done. Arteriotomy, Angio-Seal done. Procedure went well. There were no complications. The patient is symptom free. We have the following report available at this time and the report is as follows: * The patient's left main is normal. The left anterior descending artery is 100% occluded at the ostium. * The circumflex artery is of a small size obtuse marginal artery, also having subtotally 90% blockage in the mid region. * The patient's ejection fraction is 25% and there is a dilated left ventricle. The whole inferior wall has become hypokinetic. The anterior wall motion is normal. * The patient's right coronary artery is 100% occluded at the proximal one-third region, ИРИНА grade 0 flow. * The patient's left internal mammary artery descending artery has been opened up. * The left anterior artery has been widely open. There is also retrograde filling of the diagonal branches also. * The venous bypass graft to the obtuse marginal artery has been widely open and it is filling of the obtuse marginal artery retrogradely very well. The first and the second marginal branches both have been normal. * There is a stump noted at the origin of the bypass graft to posterior descending artery. ИРИНА grade 0 flow. We also did ascending aortography, which did not reveal any other region of the bypass graft ostium of the bypass graft to the posterior descending artery, which had been seen with ИРИНА grade 0 flow. * The right femoral artery is normal. Successful Angio-Seal. CONCLUSION: * This patient has 100% occlusion of the bypass graft to posterior descending artery at the ostium. ИРИНА grade 0 flow. * Recent bypass graft to obtuse marginal artery widely open. * The left internal mammary artery graft to left anterior descending artery has been open. * Left ventricle is dilated. Inferior wall hypokinesis. Ejection fraction in the range of 25%. * [place]asta significant coronary artery disease. PLAN: As follows: At this time, the patient's hemoglobin is only 5 g%. The patient is pain-free. The patient is also on dialysis. I have not made any attempt to put any wire into the ostium of the bypass graft to posterior descending artery as it is not indicated. Sen Kelly MD MP/SHYANNE/VARUN TID: [id number] RECEIPT: [id number] [facility]
[2025-02-19 07:41] LABS: Hematocrit 17.9 % (41.0-53.0); Mean Corpuscular Hemoglobin 33.7 pg (28.0-32.0); Mean Corpuscular Volume 97.0 fL (80.0-100.0); Nucleated Red Blood Cells % 0.1 %
[2025-02-19 07:53] LABS: Anion Gap 11 (5-15); Hemoglobin 6.2 g/dL (13.5-17.5); Potassium 3.7 mmol/L (3.5-5.1); Sodium 137 mmol/L (136-145)
[2025-02-19 07:59] LABS: BUN/Creatinine Ratio 4.1 (10.0-20.0); Blood Urea Nitrogen 21 mg/dL (9-23); Glucose 98 mg/dL (74-106)
[2025-02-19 08:07] LABS: Calcium 8.4 mg/dL (8.7-10.4); Carbon Dioxide 31 mmol/L (20-31); Chloride 95 mmol/L (98-107)
[2025-02-19 09:23] LABS: Anisocytosis Slight
--- NOTE | 2025-02-19 10:38 | DVHPN2 ---
Progress Note Date Seen: Feb 19, 2025 Medical Necessity Reason Pt with a Central, PICC or Fol: Yes The following are medically ne: Central Line Subjective Patient reports: No new complaints Review of Systems: HEENT:Normal, CVS:Normal, RESPIRATORY:Normal, GI:Normal, :Normal, MSK:Normal, NEURO:Normal Objective vital signs Vital Sign Date Time Temp Pulse Resp B/P (MAP) Pulse Ox O2 Delivery O2 Flow Rate FiO2 02/19/25 09:00 87 15 124/70 (88) 95 02/19/25 08:00 99.0 99.0 02/19/25 07:30 Room Air* 0 21 Total Intake and Output 02/18/25 02/18/25 02/19/25 15:00 23:00 07:00 Intake Total 150 ml 260 ml 210 ml Output Total 0 ml Balance 150 ml 260 ml 210 ml medications Current Medications Medications Dose Ordered Sig/Kerri Route Start Time Stop Time Status Last Admin Dose Admin Diagnostic Test (Pha) 1 strip ACHS 02/17/25 17:00 02/19/25 06:48 1 STRIP Insulin Human Regular ACHS SC 02/17/25 17:00 Dextrose 50 ml UD PRN IV 02/17/25 14:30 02/17/25 22:05 50 ML Pantoprazole Sodium 40 mg DAILY IV 02/18/25 10:00 Nitroglycerin 0.4 mg Q5MINP PRN SL 02/17/25 16:00 Morphine Sulfate 2 mg Q30M PRN IV 02/17/25 16:00 Pantoprazole Sodium 50 ml @ 10 mls/hr Q5H IV 02/17/25 18:00 02/19/25 08:53 10 MLS/HR Octreotide Acetate 500 mcg/ Sodium Chloride 100 ml @ 10 mls/hr Q10H IV 02/17/25 18:00 02/18/25 05:14 10 MLS/HR Norepinephrine Bitartrate 250 ml @ 3.75 mls/hr Q24H IV 02/17/25 20:30 Examination: GENERAL:Normal, HEENT:Normal, NECK:Normal, LUNGS:Normal, CVS:Normal, ABDOMEN:Normal, MSK:Normal, MSK:Abnormal (left bka), SKIN:Normal, NEURO:Normal, :Normal laboratory and microbiology Laboratory Tests 02/19/25 06:26 Test 02/19/25 06:26 Range/Units Serum Glucose 98 74-106 mg/dL Problem List/Assessment/Plan Problem List/Assessment/Plan #1 gi bleed: egd today #2 severe anemia s/p transfusion: additional transfusion today, protonix drip #3 dm: ssi #4 cad s/p cabg #5 ? acute on chronic systolic heart failure #6 left bka #7 obesity #8 htn #9 acute mi s/p c angio #10 blindness Plan discussed with: Patient, Spouse Dietary Evaluation Review Comments: 1) Encourage optimal PO intake 2) Advance to 60g CCHO renal cardiac diet when medically feasible 3) Refer to outpatient RD/CDCES for weight management 4) Follow-up with cardiology, pulmonology, nephrology, and gastroenterology 4) Continue to monitor I&O, labs, and skin integrity Expected Outcomes/Goals: 1) appetite and labs to improve 2) diet to advance 3) GI symptoms to resolve 4) f/u in 3-5 days Critical Care Time (mins): 41 (critical care time excluding procedures is 41 mins) Date of Service: Feb 19, 2025 Billing Provider: VIKASH BARRON MD Common Visit Codes: [id number] CARE 30-74 MIN VIKASH BARRON MD Feb 19, 2025 10:38
--- NOTE | 2025-02-19 13:45 | ECG ---
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
[2025-02-19] MEDS: ACETAMINOPHEN 325 MG TAB PO ONE (15:03)
[2025-02-19] MEDS: ACETAMINOPHEN 325 MG TAB PO PRN (15:03)
--- NOTE | 2025-02-19 16:15 | DVHPN2 ---
Progress Note - Dictate Date Seen: Feb 19, 2025 Medical Necessity Reason Pt with a Central, PICC or Fol: Yes The following are medically ne: Central Line Subjective no new symptoms vital signs Vital Sign Date Time Temp Pulse Resp B/P (MAP) Pulse Ox O2 Delivery O2 Flow Rate FiO2 02/19/25 13:00 98.5 95 20 137/66 (89) 96 98.5 02/19/25 07:30 Room Air* 0 21 Total Intake and Output 02/18/25 02/18/25 02/19/25 15:00 23:00 07:00 Intake Total 150 ml 260 ml 220 ml Output Total 0 ml Balance 150 ml 260 ml 220 ml medications Current Medications Medications Dose Ordered Sig/Kerri Route Start Time Stop Time Status Last Admin Dose Admin Diagnostic Test (Pha) 1 strip ACHS 02/17/25 17:00 02/19/25 11:30 1 STRIP Insulin Human Regular ACHS SC 02/17/25 17:00 Dextrose 50 ml UD PRN IV 02/17/25 14:30 02/17/25 22:05 50 ML Pantoprazole Sodium 40 mg DAILY IV 02/18/25 10:00 Nitroglycerin 0.4 mg Q5MINP PRN SL 02/17/25 16:00 Morphine Sulfate 2 mg Q30M PRN IV 02/17/25 16:00 Pantoprazole Sodium 50 ml @ 10 mls/hr Q5H IV 02/17/25 18:00 02/19/25 14:20 10 MLS/HR Octreotide Acetate 500 mcg/ Sodium Chloride 100 ml @ 10 mls/hr Q10H IV 02/17/25 18:00 02/18/25 05:14 10 MLS/HR Norepinephrine Bitartrate 250 ml @ 3.75 mls/hr Q24H IV 02/17/25 20:30 Acetaminophen 650 mg Q6HP PRN PO 02/19/25 14:15 02/19/25 15:03 650 MG objective Awake alert oriented x3 HEENT: Normocephalic, no JVD Lungs: Bilateral good air entry CVS: S1, S2 regular rate rhythm Abdomen: Soft, bowel sounds present 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 monitor H&H and transfuse if Hb < 7 g/dl ANTONIA post HD Dietary Evaluation Review Comments: 1) Encourage optimal PO intake 2) Advance to 60g CCHO renal cardiac diet when medically feasible 3) Refer to outpatient RD/CDCES for weight management 4) Follow-up with cardiology, pulmonology, nephrology, and gastroenterology 4) Continue to monitor I&O, labs, and skin integrity Expected Outcomes/Goals: 1) appetite and labs to improve 2) diet to advance 3) GI symptoms to resolve 4) f/u in 3-5 days Plan discussed with: Patient BIANKA FRITZ MD Feb 19, 2025 16:14
--- NOTE | 2025-02-19 20:30 | DVHPN2 ---
Progress Note - Dictate Date Seen: Feb 19, 2025 Medical Necessity Reason Pt with a Central, PICC or Fol: Yes The following are medically ne: Central Line Subjective Mild bleeding this morning hemoglobin was 6.2 no gross bleeding now Blood transfusion vital signs Vital Sign Date Time Temp Pulse Resp B/P (MAP) Pulse Ox O2 Delivery O2 Flow Rate FiO2 02/19/25 20:00 89 14 96 Room Air* 0 21 02/19/25 20:00 98.4 125/68 (87) 98.4 Total Intake and Output 02/18/25 02/18/25 02/19/25 15:00 23:00 07:00 Intake Total 150 ml 260 ml 220 ml Output Total 0 ml Balance 150 ml 260 ml 220 ml medications Current Medications Medications Dose Ordered Sig/Kerri Route Start Time Stop Time Status Last Admin Dose Admin Diagnostic Test (Pha) 1 strip ACHS 02/17/25 17:00 02/19/25 17:46 1 STRIP Insulin Human Regular ACHS SC 02/17/25 17:00 Dextrose 50 ml UD PRN IV 02/17/25 14:30 02/17/25 22:05 50 ML Pantoprazole Sodium 40 mg DAILY IV 02/18/25 10:00 Nitroglycerin 0.4 mg Q5MINP PRN SL 02/17/25 16:00 Morphine Sulfate 2 mg Q30M PRN IV 02/17/25 16:00 Pantoprazole Sodium 50 ml @ 10 mls/hr Q5H IV 02/17/25 18:00 02/19/25 18:38 10 MLS/HR Octreotide Acetate 500 mcg/ Sodium Chloride 100 ml @ 10 mls/hr Q10H IV 02/17/25 18:00 02/18/25 05:14 10 MLS/HR Norepinephrine Bitartrate 250 ml @ 3.75 mls/hr Q24H IV 02/17/25 20:30 Acetaminophen 650 mg Q6HP PRN PO 02/19/25 14:15 02/19/25 15:03 650 MG objective Abdomen is soft nontender no mass Hemoglobin is 6 given 1 unit of transfusion Unable to to the scope still since scope systems was still down Endoscopic evaluation as soon as the scope so already laboratory and microbiology Laboratory Tests 02/19/25 06:26 Test 02/19/25 06:26 Range/Units Serum Glucose 98 74-106 mg/dL Assessment/Plan 59-year-old diabetic with blindness admitted with weakness tiredness and anemia and blood in the stool black Clinical impression possible ulcer versus gastritis or esophageal problems Colon diseases can not be excluded also but less likely STEMI status post coronary angiogram diffuse disease With black stools weakness tiredness Portion was scheduled for the endoscopy and as soon as endoscopy was started the the light source and the system failed and the procedure had to be canceled the scope had to be withdrawn and procedure canceled the visualized portions of the in the esophagus was unremarkable but otherwise stomach had some gastric contents which works cleaning which were getting cleaned out been the scope failed Needs an endoscopic evaluation of the upper GI tract as soon as the scope system is repaired and ready To monitor the hemoglobin closely in the meantime Dr. Barajas Dietary Evaluation Review Comments: 1) Encourage optimal PO intake 2) Advance to 60g CCHO renal cardiac diet when medically feasible 3) Refer to outpatient RD/CDCES for weight management 4) Follow-up with cardiology, pulmonology, nephrology, and gastroenterology 4) Continue to monitor I&O, labs, and skin integrity Expected Outcomes/Goals: 1) appetite and labs to improve 2) diet to advance 3) GI symptoms to resolve 4) f/u in 3-5 days Plan discussed with: Patient ELISA BARAJAS MD Feb 19, 2025 20:30
--- NOTE | 2025-02-19 22:34 | DVHPN2 ---
Progress Note - Dictate Date Seen: Feb 19, 2025 Medical Necessity Reason Pt with a Central, PICC or Fol: Yes The following are medically ne: Central Line Subjective Patient was seen and evaluated in follow up in the [facility]. Patient underwent left heart cath, [place]ainwright selective left and right coronary angiography, venous bypass graft angiography x2. This patient has 100% occlusion of the bypass graft to posterior descending artery at the ostium. ИРИНА grade 0 flow. Left ventricle is dilated. Inferior wall hypokinesis. Ejection fraction in the range of 25%. Ramona significant coronary artery disease. At this time, the patient's hemoglobin is only 5 g%. The patient is pain-free. The patient is also on dialysis. I have not made any attempt to put any wire into the ostium of the bypass graft to posterior descending artery as it is not indicated. Patient receiving PRBC transfusion. vital signs Vital Sign Date Time Temp Pulse Resp B/P (MAP) Pulse Ox O2 Delivery O2 Flow Rate FiO2 02/19/25 22:00 77 35 136/74 (94) 95 02/19/25 20:00 Room Air* 0 21 02/19/25 20:00 98.4 98.4 Total Intake and Output 02/18/25 02/18/25 02/19/25 15:00 23:00 07:00 Intake Total 150 ml 260 ml 220 ml Output Total 0 ml Balance 150 ml 260 ml 220 ml medications Current Medications Medications Dose Ordered Sig/Kerri Route Start Time Stop Time Status Last Admin Dose Admin Diagnostic Test (Pha) 1 strip ACHS 02/17/25 17:00 02/19/25 22:06 1 STRIP Insulin Human Regular ACHS SC 02/17/25 17:00 Dextrose 50 ml UD PRN IV 02/17/25 14:30 02/17/25 22:05 50 ML Pantoprazole Sodium 40 mg DAILY IV 02/18/25 10:00 Nitroglycerin 0.4 mg Q5MINP PRN SL 02/17/25 16:00 Morphine Sulfate 2 mg Q30M PRN IV 02/17/25 16:00 Pantoprazole Sodium 50 ml @ 10 mls/hr Q5H IV 02/17/25 18:00 02/19/25 18:38 10 MLS/HR Octreotide Acetate 500 mcg/ Sodium Chloride 100 ml @ 10 mls/hr Q10H IV 02/17/25 18:00 02/18/25 05:14 10 MLS/HR Norepinephrine Bitartrate 250 ml @ 3.75 mls/hr Q24H IV 02/17/25 20:30 Acetaminophen 650 mg Q6HP PRN PO 02/19/25 14:15 02/19/25 15:03 650 MG objective GENERAL: Alert and oriented x 3. No acute distress. EYES: PERRL, EOMI. Anicteric. HENT: Moist mucous membranes. LUNGS: Clear to auscultation bilaterally. CARDIOVASCULAR: Regular rate and rhythm. ABDOMEN: Soft, nontender and nondistended. EXTREMITIES: Left AKA. NEUROLOGIC: No focal neurological deficits. SKIN: Warm, dry. laboratory and microbiology Laboratory Tests 02/19/25 06:26 Test 02/19/25 06:26 Range/Units Serum Glucose 98 74-106 mg/dL Problem List STEMI. Generalized weakness. GI bleed. Hypertension. Type 2 DM. ESRD on hemodialysis. Assessment/Plan Continued all current supportive medical care. IVFs GI prophylactics. Morphine for pain management. Octreotide drip. Vasopressors for hemodynamic support. Additional plan as per the hospital course. Critical care time of 45 minutes provided to include time spent evaluation of patient at bedside, when appropriate patient/family education for diagnosis, treatment plan, review of pertinent medical information and discussion of care with specialty providers and PCP. Dietary Evaluation Review Comments: 1) Encourage optimal PO intake 2) Advance to 60g [facility] renal cardiac diet when medically feasible 3) Refer to outpatient RD/CDCES for weight management 4) Follow-up with cardiology, pulmonology, nephrology, and gastroenterology 4) Continue to monitor I&O, labs, and skin integrity Expected Outcomes/Goals: 1) appetite and labs to improve 2) diet to advance 3) GI symptoms to resolve 4) f/u in 3-5 days Plan discussed with: Patient CHU NIELSEN MD Feb 19, 2025 22:34
[2025-02-20] VITALS (15 sets, daily range): BP systolic 92–152; BP diastolic 62–83; PULSE 76–91; RESP 12–22; TEMP 97.2–98.5; O2SAT 91–100
[2025-02-20 06:30] LABS: Hemoglobin 8.0 g/dL (13.5-17.5); Nucleated Red Blood Cells % 0.1 %
[2025-02-20 06:32] LABS: Hematocrit 23.1 % (41.0-53.0); Mean Corpuscular Hemoglobin 33.6 pg (28.0-32.0); Mean Corpuscular Volume 97.5 fL (80.0-100.0)
[2025-02-20 06:33] LABS: Potassium 3.9 mmol/L (3.5-5.1)
[2025-02-20 06:34] LABS: Anion Gap 10 (5-15); Carbon Dioxide 29 mmol/L (20-31)
[2025-02-20 06:39] LABS: BUN/Creatinine Ratio 4.2 (10.0-20.0); Glucose 78 mg/dL (74-106)
[2025-02-20 06:46] LABS: Blood Urea Nitrogen 27 mg/dL (9-23); Calcium 8.2 mg/dL (8.7-10.4); Chloride 95 mmol/L (98-107); Sodium 134 mmol/L (136-145)
[2025-02-20] MEDS ORDERED: SODIUM CHL 0.9% 1000 ML BAG XX ONE (07:00)
--- NOTE | 2025-02-20 07:35 | DVH ---
CHEST RADIOGRAPH Indication: CHF Technique: Single frontal view of the chest was obtained Comparison: XY CHEST PORTABLE on DOS: 02/17/25 FINDINGS: Lines and Tubes: There is a right central venous catheter with its tip terminating in the superior ve na cava. Lungs: No focal consolidation. Pleura: No effusion. No pneumothorax. Cardiomediastinal contours: Unremarkable Bones: No acute osseous abnormality. Status post median sternotomy. IMPRESSION: 1. No acute cardiopulmonary disease.
--- NOTE | 2025-02-20 10:32 | DVHPN2 ---
Progress Note Date Seen: Feb 20, 2025 Medical Necessity Reason Pt with a Central, PICC or Fol: Yes The following are medically ne: Central Line Subjective Patient reports: No new complaints Review of Systems: HEENT:Normal, CVS:Normal, RESPIRATORY:Normal, GI:Normal, :Normal, MSK:Normal, NEURO:Normal Objective vital signs Vital Sign Date Time Temp Pulse Resp B/P (MAP) Pulse Ox O2 Delivery O2 Flow Rate FiO2 02/20/25 09:00 89 12 128/69 (88) 99 02/20/25 08:00 Room Air* 0 21 02/20/25 08:00 98.0 98.0 Total Intake and Output 02/19/25 02/19/25 02/20/25 15:00 23:00 07:00 Intake Total 80 ml 580 ml 220 ml Output Total 0 ml 0 ml Balance 80 ml 580 ml 220 ml medications Current Medications Medications Dose Ordered Sig/Kerri Route Start Time Stop Time Status Last Admin Dose Admin Diagnostic Test (Pha) 1 strip ACHS 02/17/25 17:00 02/20/25 05:59 1 STRIP Insulin Human Regular ACHS SC 02/17/25 17:00 Dextrose 50 ml UD PRN IV 02/17/25 14:30 02/20/25 05:50 50 ML Pantoprazole Sodium 40 mg DAILY IV 02/18/25 10:00 Nitroglycerin 0.4 mg Q5MINP PRN SL 02/17/25 16:00 Morphine Sulfate 2 mg Q30M PRN IV 02/17/25 16:00 Pantoprazole Sodium 50 ml @ 10 mls/hr Q5H IV 02/17/25 18:00 02/20/25 09:55 10 MLS/HR Octreotide Acetate 500 mcg/ Sodium Chloride 100 ml @ 10 mls/hr Q10H IV 02/17/25 18:00 02/18/25 05:14 10 MLS/HR Norepinephrine Bitartrate 250 ml @ 3.75 mls/hr Q24H IV 02/17/25 20:30 Acetaminophen 650 mg Q6HP PRN PO 02/19/25 14:15 02/19/25 15:03 650 MG Examination: GENERAL:Normal, HEENT:Normal, NECK:Normal, LUNGS:Normal, CVS:Normal, ABDOMEN:Normal, MSK:Normal, MSK:Abnormal (right heel wound), SKIN:Normal, NEURO:Normal, :Normal laboratory and microbiology Laboratory Tests 02/20/25 05:38 Test 02/20/25 05:38 Range/Units Serum Glucose 78 74-106 mg/dL Problem List/Assessment/Plan Problem List/Assessment/Plan #1 gi bleed: egd #2 severe anemia s/p transfusion: additional transfusion today, protonix drip #3 dm: ssi #4 cad s/p cabg #5 ? acute on chronic systolic heart failure #6 left bka #7 obesity #8 htn #9 acute mi s/p c angio #10 blindness #11 right heel wound Plan discussed with: Patient, Spouse My Orders My Orders Orders - VIKASH BARRON MD Procedure Category Date Status Time Chest Portable XY 02/20/25 Resulted 06:00 Clear Liq Diet DIET 02/19/25 Transmitted Lunch Acetaminophen Tablet PHA 02/19/25 In Process (Tylenol Tablet) 14:15 Apply Z-Guard NICK 02/19/25 In Process 18:37 Cleanse Wound With NICK 02/19/25 In Process Wound Clean 18:37 Transfer Orders XFER 02/20/25 Verified 10:29 Basic Metabolic Panel LAB 02/21/25 Verified 06:00 Complete Blood Count LAB 02/21/25 Verified 06:00 Dietary Evaluation Review Comments: 1) Encourage optimal PO intake 2) Advance to 60g CCHO renal cardiac diet when medically feasible 3) Refer to outpatient RD/CDCES for weight management 4) Follow-up with cardiology, pulmonology, nephrology, and gastroenterology 4) Continue to monitor I&O, labs, and skin integrity Expected Outcomes/Goals: 1) appetite and labs to improve 2) diet to advance 3) GI symptoms to resolve 4) f/u in 3-5 days Critical Care Time (mins): 38 (critical care time excluding procedures is 38 mins) Date of Service: Feb 20, 2025 Billing Provider: VIKASH BARRON MD Common Visit Codes: [id number] CARE 30-74 MIN VIKASH BARRON MD Feb 20, 2025 10:32
[2025-02-20] MEDS ORDERED: LIDOCAINE 2% (LOCAL ANESTH.) PF 5ml SDV ONE (14:59)
[2025-02-20] MEDS ORDERED: PROPOFOL 10 MG/ML 20 ML IV ONE (14:59)
--- NOTE | 2025-02-20 16:14 | DVHOP2 ---
Operative Report DATE OF OPERATION: 02/20/25 PROCEDURE: Upper Endoscopy with biopsy. PREOPERATIVE INDICATION: The patient is a 59 -year-old male undergoing endoscopy for anemia POSTOPERATIVE DIAGNOSES: 1. 1 cm sliding-type hiatal hernia with slightly irregular squamocolumnar junction 2. Moderate gastroparesis otherwise normal examination up to the 2nd and 3rd part of the duodenal with no active bleeding no fresh or old blood in the upper GI tract PROCEDURE PERFORMED BY: Lizz Clemente GI NURSE: Bryanna SCOPE: Olympus videoendoscope. ASA CLASS: 3. PREOPERATIVE MEDICATIONS: Mac sedationFreddy PROCEDURE IN DETAIL: After obtaining an informed consent, the patient was placed on left lateral decubitus position. The patient was then sedated with the above medications. A bite block was placed between his teeth. The endoscope was then passed through the oropharynx, into the esophagus, and through the stomach and pylorus up to the second and third part of the duodenum. The endoscope was then withdrawn. The 2nd and 3rd part of the duodenal and the duodenal bulb were normal. Duodenal biopsies were obtained The pre-pyloric area antrum and body showed minimal gastritis. Patient had moderate gastroparesis with retained food in the antrum and also in the cardia of the stomach Gastric biopsies were obtained. The endoscope was then withdrawn into distal esophagus. There was no fresh or old blood in the upper GI tract Patient had a 1 cm sliding-type hiatal hernia with no significant erosive esophagitis The remaining distal and proximal esophagus and oropharynx were unremarkable The patient tolerated the procedure well without difficulty. COMPLICATIONS : None SPECIMENS: Duodenal biopsies Gastric biopsies DISPOSITION: Transfer back to the floor Stable PLAN: 1. Await for biopsy result 2. Will place pt on Protonix 40 mg p.o. daily 3. Reglan 5 mg IV q.8 hours 4. Resume full liquid diet advance as tolerated 5. Outpatient follow up with [facility] for screening colonoscopy LIZZ CLEMENTE MD Feb 20, 2025 16:14
--- NOTE | 2025-02-20 16:40 | DVHPN2 ---
Progress Note - Dictate Date Seen: Feb 20, 2025 Medical Necessity Reason Pt with a Central, PICC or Fol: Yes The following are medically ne: Central Line Subjective no new symptoms vital signs Vital Sign Date Time Temp Pulse Resp B/P (MAP) Pulse Ox O2 Delivery O2 Flow Rate FiO2 02/20/25 15:52 85 15 138/67 (90) 97 02/20/25 15:07 Mask 8.0 02/20/25 15:07 98.0 98.0 02/20/25 08:00 21 Total Intake and Output 02/19/25 02/19/25 02/20/25 15:00 23:00 07:00 Intake Total 80 ml 580 ml 220 ml Output Total 0 ml 0 ml Balance 80 ml 580 ml 220 ml medications Current Medications Medications Dose Ordered Sig/Kerri Route Start Time Stop Time Status Last Admin Dose Admin Diagnostic Test (Pha) 1 strip ACHS 02/17/25 17:00 02/20/25 11:14 1 STRIP Insulin Human Regular ACHS SC 02/17/25 17:00 Dextrose 50 ml UD PRN IV 02/17/25 14:30 02/20/25 05:50 50 ML Nitroglycerin 0.4 mg Q5MINP PRN SL 02/17/25 16:00 Morphine Sulfate 2 mg Q30M PRN IV 02/17/25 16:00 Pantoprazole Sodium 50 ml @ 10 mls/hr Q5H IV 02/17/25 18:00 02/20/25 09:55 10 MLS/HR Acetaminophen 650 mg Q6HP PRN PO 02/19/25 14:15 02/19/25 15:03 650 MG Pantoprazole Sodium 40 mg BID@0600,1700 PO 02/20/25 17:00 UNV Metoclopramide HCl 5 mg Q8HR IV 02/20/25 22:00 UNV Polyethylene Glycol 17 gm DAILY PO 02/21/25 10:00 UNV objective Awake alert oriented x3 HEENT: Normocephalic, no JVD Lungs: Bilateral good air entry CVS: S1, S2 regular rate rhythm Abdomen: Soft, bowel sounds present 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 monitor H&H and transfuse if Hb < 7 g/dl ANTONIA post HD Dietary Evaluation Review Comments: 1) Encourage optimal PO intake 2) Advance to 60g CCHO renal cardiac diet when medically feasible 3) Refer to outpatient RD/CDCES for weight management 4) Follow-up with cardiology, pulmonology, nephrology, and gastroenterology 4) Continue to monitor I&O, labs, and skin integrity Expected Outcomes/Goals: 1) appetite and labs to improve 2) diet to advance 3) GI symptoms to resolve 4) f/u in 3-5 days Plan discussed with: Patient BIANKA FRITZ MD Feb 20, 2025 16:40
[2025-02-20] MEDS: EPOETIN ALFA-EPBX 10,000 UNIT/1ML VIAL SC ONE (20:32)
[2025-02-20] MEDS: METOCLOPRAMIDE HCL 5MG/ml INJ 2ml VIAL IV SCH (21:19)
--- NOTE | 2025-02-20 23:17 | DVHPN2 ---
Progress Note - Dictate Date Seen: Feb 20, 2025 Medical Necessity Reason Pt with a Central, PICC or Fol: Yes The following are medically ne: Central Line Subjective Patient was seen and evaluated in follow up. Patietn was downgraded to tele bed. Patient underwent EGD which showed a 1 cm sliding-type hiatal hernia with slightly irregular squamocolumnar junction and moderate gastroparesis otherwise normal examination up to the 2nd and 3rd part of the duodenal with no active bleeding no fresh or old blood in the upper GI tract. WBC 11.4, HGB 8.0, HCT 23.1. Telemetry reviewed. vital signs Vital Sign Date Time Temp Pulse Resp B/P (MAP) Pulse Ox O2 Delivery O2 Flow Rate FiO2 02/20/25 21:00 98.0 77 17 145/78 (100) 94 98.0 02/20/25 20:00 Room Air* 0 21 Total Intake and Output 02/19/25 02/19/25 02/20/25 15:00 23:00 07:00 Intake Total 80 ml 580 ml 220 ml Output Total 0 ml 0 ml Balance 80 ml 580 ml 220 ml medications Current Medications Medications Dose Ordered Sig/Kerri Route Start Time Stop Time Status Last Admin Dose Admin Diagnostic Test (Pha) 1 strip ACHS 02/17/25 17:00 02/20/25 21:12 1 STRIP Insulin Human Regular ACHS SC 02/17/25 17:00 Dextrose 50 ml UD PRN IV 02/17/25 14:30 02/20/25 05:50 50 ML Nitroglycerin 0.4 mg Q5MINP PRN SL 02/17/25 16:00 Morphine Sulfate 2 mg Q30M PRN IV 02/17/25 16:00 Acetaminophen 650 mg Q6HP PRN PO 02/19/25 14:15 02/20/25 20:32 650 MG Pantoprazole Sodium 40 mg BID@0600,1700 PO 02/20/25 17:00 Metoclopramide HCl 5 mg Q8HR IV 02/20/25 22:00 02/20/25 21:19 5 MG Polyethylene Glycol 17 gm DAILY PO 02/21/25 10:00 objective GENERAL: Alert and oriented x 3. No acute distress. EYES: PERRL, EOMI. Anicteric. HENT: Moist mucous membranes. LUNGS: Clear to auscultation bilaterally. CARDIOVASCULAR: Regular rate and rhythm. ABDOMEN: Soft, nontender and nondistended. EXTREMITIES: Left AKA. NEUROLOGIC: No focal neurological deficits. SKIN: Warm, dry. laboratory and microbiology Laboratory Tests 02/20/25 05:38 Test 02/20/25 05:38 Range/Units Serum Glucose 78 74-106 mg/dL Problem List STEMI. Generalized weakness. GI bleed. Hypertension. Type 2 DM. ESRD on hemodialysis. Assessment/Plan Continued all current supportive medical care. GI prophylactics. Morphine for pain management. Additional plan as per the hospital course. Dietary Evaluation Review Comments: 1) Encourage optimal PO intake 2) Advance to 60g [facility] renal cardiac diet when medically feasible 3) Refer to outpatient RD/[facility] for weight management 4) Follow-up with cardiology, pulmonology, nephrology, and gastroenterology 4) Continue to monitor I&O, labs, and skin integrity Expected Outcomes/Goals: 1) appetite and labs to improve 2) diet to advance 3) GI symptoms to resolve 4) f/u in 3-5 days Plan discussed with: Patient CHU NIELSEN MD Feb 20, 2025 23:17
[2025-02-21 01:00] VITALS: BP 137/72; PULSE 72; RESP 17; TEMP 98; O2SAT 96
[2025-02-21 05:00] VITALS: BP 116/80; PULSE 74; RESP 16; TEMP 97.4; O2SAT 96
[2025-02-21] MEDS: PANTOPRAZOLE 40 MG TAB PO SCH (05:53)
--- NOTE | 2025-02-21 07:11 | DVHPN2 ---
Progress Note - Dictate Date Seen: Feb 21, 2025 Medical Necessity Reason Pt with a Central, PICC or Fol: Yes The following are medically ne: Central Line Subjective no new symptoms vital signs Vital Sign Date Time Temp Pulse Resp B/P (MAP) Pulse Ox O2 Delivery O2 Flow Rate FiO2 02/21/25 05:00 97.4 74 16 116/80 (92) 96 97.4 02/20/25 20:00 Room Air* 0 21 Total Intake and Output 02/20/25 02/20/25 02/21/25 15:00 23:00 07:00 Intake Total 70 ml 450 ml 400 ml Output Total 2000 ml Balance -1930 ml 450 ml 400 ml medications Current Medications Medications Dose Ordered Sig/Kerri Route Start Time Stop Time Status Last Admin Dose Admin Diagnostic Test (Pha) 1 strip ACHS 02/17/25 17:00 02/21/25 05:52 1 STRIP Insulin Human Regular ACHS SC 02/17/25 17:00 Dextrose 50 ml UD PRN IV 02/17/25 14:30 02/20/25 05:50 50 ML Nitroglycerin 0.4 mg Q5MINP PRN SL 02/17/25 16:00 Morphine Sulfate 2 mg Q30M PRN IV 02/17/25 16:00 Acetaminophen 650 mg Q6HP PRN PO 02/19/25 14:15 02/20/25 20:32 650 MG Pantoprazole Sodium 40 mg BID@0600,1700 PO 02/20/25 17:00 02/21/25 05:53 40 MG Metoclopramide HCl 5 mg Q8HR IV 02/20/25 22:00 02/21/25 05:53 5 MG Polyethylene Glycol 17 gm DAILY PO 02/21/25 10:00 objective Awake alert oriented x3 HEENT: Normocephalic, no JVD Lungs: Bilateral good air entry CVS: S1, S2 regular rate rhythm Abdomen: Soft, bowel sounds present SURVEY DIRECTOR: No focal deficits Extremities: Status post left BKA laboratory and microbiology Laboratory Tests 02/20/25 05:38 Test 02/20/25 05:38 Range/Units Serum Glucose 78 74-106 mg/dL Assessment/Plan Assessment: End-stage kidney disease on hemodialysis ST-elevation AR Anemia secondary to GI bleed History of coronary artery disease status post CABG 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 monitor H&H and transfuse if Hb < 7 g/dl ANTONIA post HD Dietary Evaluation Review Comments: 1) Encourage optimal PO intake 2) Advance to 60g [facility] renal cardiac diet when medically feasible 3) Refer to outpatient RD/[facility] for weight management 4) Follow-up with cardiology, pulmonology, nephrology, and gastroenterology 4) Continue to monitor I&O, labs, and skin integrity Expected Outcomes/Goals: 1) appetite and labs to improve 2) diet to advance 3) GI symptoms to resolve 4) f/u in 3-5 days Plan discussed with: Patient BIANKA FRITZ MD Feb 21, 2025 07:10
[2025-02-21 07:36] LABS: Hematocrit 24.2 % (41.0-53.0); Hemoglobin 8.5 g/dL (13.5-17.5); Mean Corpuscular Hemoglobin 34.0 pg (28.0-32.0); Mean Corpuscular Volume 97.0 fL (80.0-100.0); Nucleated Red Blood Cells % 0.1 %
[2025-02-21 07:50] LABS: Potassium 3.7 mmol/L (3.5-5.1)
[2025-02-21 07:51] LABS: Anion Gap 12 (5-15); Carbon Dioxide 29 mmol/L (20-31)
[2025-02-21 07:56] LABS: BUN/Creatinine Ratio 4.3 (10.0-20.0); Blood Urea Nitrogen 22 mg/dL (9-23)
[2025-02-21 07:59] LABS: Calcium 8.5 mg/dL (8.7-10.4); Chloride 94 mmol/L (98-107); Glucose 64 mg/dL (74-106); Sodium 135 mmol/L (136-145)
[2025-02-21 08:00] VITALS: PULSE 85
[2025-02-21] MEDS ORDERED: SODIUM CHL 0.9% 1000 ML BAG XX ONE (08:00)
[2025-02-21] MEDS: POLYETHYLENE GLYCOL 17 GM PWDR PO SCH (09:38)
[2025-02-21 09:48] VITALS: BP 133/84; PULSE 88; RESP 16; TEMP 98.3; O2SAT 91
--- NOTE | 2025-02-21 11:21 | DVHPN2 ---
Progress Note Date Seen: Feb 21, 2025 Resident Creating Document: RIKKI ZEE RESIDENT Medical Necessity Reason Pt with a Central, PICC or Fol: Yes The following are medically ne: Central Line Subjective Review of Systems Patient seen and examined at bedside Denies any nausea or vomiting Denies any abdominal pain Currently tolerating diet without any complaints Last bowel movement today, soft, nonbloody Stable H&H Objective vital signs Vital Sign Date Time Temp Pulse Resp B/P (MAP) Pulse Ox O2 Delivery O2 Flow Rate FiO2 02/21/25 09:48 98.3 88 16 133/84 (100) 91 98.3 02/20/25 20:00 Room Air* 0 21 Total Intake and Output 02/20/25 02/20/25 02/21/25 15:00 23:00 07:00 Intake Total 70 ml 450 ml 400 ml Output Total 2000 ml Balance -1930 ml 450 ml 400 ml medications Current Medications Medications Dose Ordered Sig/Kerri Route Start Time Stop Time Status Last Admin Dose Admin Diagnostic Test (Pha) 1 strip ACHS 02/17/25 17:00 02/21/25 05:52 1 STRIP Insulin Human Regular ACHS SC 02/17/25 17:00 Dextrose 50 ml UD PRN IV 02/17/25 14:30 02/20/25 05:50 50 ML Nitroglycerin 0.4 mg Q5MINP PRN SL 02/17/25 16:00 Morphine Sulfate 2 mg Q30M PRN IV 02/17/25 16:00 Acetaminophen 650 mg Q6HP PRN PO 02/19/25 14:15 02/20/25 20:32 650 MG Pantoprazole Sodium 40 mg BID@0600,1700 PO 02/20/25 17:00 02/21/25 05:53 40 MG Metoclopramide HCl 5 mg Q8HR IV 02/20/25 22:00 02/21/25 05:53 5 MG Polyethylene Glycol 17 gm DAILY PO 02/21/25 10:00 02/21/25 09:38 17 GM Examination General Appearance: Cooperative. Well developed. Pulmonary/Respiratory: Chest non-tender. Bilateral air entry Abdominal Exam: Normal bowel sounds. Soft. normal abdomen, no visible veins, Nontender. No hepatospenomegaly. No masses Ankle Exam: Negative ankle edema Neuro/Mental Status: A&O x4. Coherent. Thoughts/Psych: Normal thought pattern. Appropriate mood and affect. Good judgement and insight Skin Exam: Normal inspection. Normal color. Warm. Dry laboratory and microbiology Laboratory Tests 02/21/25 06:22 Test 02/21/25 06:22 Range/Units Serum Glucose 64 L 74-106 mg/dL Labs and/or images reviewed: Labs reviewed by me, Image(s) reviewed by me Problem List/Assessment/Plan Problem List/Assessment/Plan Moderate gastroparesis Anemia likely of chronic disease, MCV 97 ESRD on hemodialysis NSTEMI History of CAD s/p CABG Hiatal hernia Plan: Patient completed EGD yesterday which showed moderate gastroparesis, otherwise normal examination up to the 2nd and 3rd part of the duodenum with no active bleeding, no fresh or old blood in the upper GI tract. Protonix 40 mg p.o. daily Metoclopramide 5 mg IV Q 8 hours Advance diet as tolerated Outpatient follow up with Jasmeet for screening colonoscopy Thank you so much for the opportunity to consult on your patient. GI team will follow the patient. In case of any questions or concerns please feel free to reach out. Plan discussed with Dr. Clemente Plan discussed with: Patient, Spouse, Other (RN) Dietary Evaluation Review Comments: 1) Encourage optimal PO intake 2) Advance to 60g [facility] renal cardiac diet when medically feasible 3) Refer to outpatient RD/[facility] for weight management 4) Follow-up with cardiology, pulmonology, nephrology, and gastroenterology 4) Continue to monitor I&O, labs, and skin integrity Expected Outcomes/Goals: 1) appetite and labs to improve 2) diet to advance 3) GI symptoms to resolve 4) f/u in 3-5 days RIKKI ZEE RESIDENT Feb 21, 2025 11:21
--- NOTE | 2025-02-21 11:46 | DVHDS2 ---
Discharge Summary Date of Admission Feb 17, 2025 at 15:46 Date of Discharge: Feb 21, 2025 Labs/Diagnostic Data: Laboratory Results Test 02/21/25 06:22 02/21/25 05:51 02/20/25 05:38 02/19/25 06:26 White Blood Count 10.2 10^3/uL (4.4-10.8) Red Blood Count 2.50 10^6/uL (4.5-5.90) Hemoglobin 8.5 g/dL (13.5-17.5) Hematocrit 24.2 % (41.0-53.0) Mean Corpuscular Volume 97.0 fL (80.0-100.0) Mean Corpuscular Hemoglobin 34.0 pg (28.0-32.0) Mean Corpuscular Hemoglobin Concent 35.0 g/dL (32.0-36.0) Red Cell Distribution Width 15.8 % (11.8-14.3) Platelet Count 219 10^3/uL (140-450) Mean Platelet Volume 8.5 fL (6.9-10.8) Neutrophils (%) (Auto) 78.4 % (37.0-80.0) Lymphocytes (%) (Auto) 9.0 % (10.0-50.0) Monocytes (%) (Auto) 8.6 % (0.0-12.0) Eosinophils (%) (Auto) 3.6 % (0.0-7.0) Basophils (%) (Auto) 0.4 % (0.0-2.0) Neutrophils # (Auto) 8.0 10 ^3/uL (1.6-8.6) Lymphocytes # (Auto) 0.9 10 ^3/uL (0.4-5.4) Monocytes # (Auto) 0.9 10 ^3/uL (0-1.3) Eosinophils # (Auto) 0.4 10 ^3/uL (0-0.8) Basophils # (Auto) 0 10 ^3/uL (0-0.2) Nucleated Red Blood Cells 0.1 % Sodium Level 135 mmol/L (136-145) Potassium Level 3.7 mmol/L (3.5-5.1) Chloride Level 94 mmol/L (98-107) Carbon Dioxide Level 29 mmol/L (20-31) Anion Gap 12 (5-15) Blood Urea Nitrogen 22 mg/dL (9-23) Creatinine 5.13 mg/dL (0.700-1.30) Glomerular Filtration Rate Calc 12 mL/min (>90) BUN/Creatinine Ratio 4.3 (10.0-20.0) Serum Glucose 64 mg/dL (74-106) Calcium Level 8.5 mg/dL (8.7-10.4) POC Glucose 70 mg/dl (70-106) Hemoglobin A1c 4.8 % A1C (<5.7) Platelet Estimate Adequate Anisocytosis (manual) Slight Test 02/18/25 05:26 02/18/25 05:16 02/17/25 18:50 02/17/25 15:15 Hepatitis B Surface Antigen Negative (Negative) Prothrombin Time 11.9 sec (9.3-11.8) Prothrombin Time INR 1.14 (0.9-1.15) Albumin 3.3 g/dL (3.2-4.8) Stool Occult Blood Positive (Negative) Stool Occult Blood Sample #3 (Negative) Iron Level 86 ug/dL (65-175) Total Iron Binding Capacity 120 ug/dL (250-425) Percent Iron Saturation 71.7 % (20-55) Test 02/17/25 14:20 Macrocytosis Slight Activated Partial Thromboplast Time 23.1 SEC (24.5-34.5) Total Bilirubin 0.3 mg/dL (0.2-1.0) Aspartate Amino Transferase (AST) 17 U/L (13-40) Alanine Aminotransferase (ALT) < 9 U/L (7-40) Alkaline Phosphatase 87 U/L (46-116) Troponin I High Sensitivity 1465 ng/L (</=54) Total Protein 6.7 g/dL (5.7-8.2) Other Laboratory Tests 02/21/25 06:22 Brief Hx & Hospital Course: see dictated note Condition at Discharge: Fair Final Diagnosis/Problems List anemia Discharge Disposition: Home Discharge Instruct/Medications Diet: Renal Activity: No Restrictions, As Tolerated Follow Up/Referral: fu with pcp/nephrology Medications: resume home meds except asa/nsaids dc after dialysis script to pharmacy Discharge Statement: "Patient was advised to return to the ER or call 911 if any headaches, dizziness, shortness of breath, chest pain, abdominal pain, bleeding, fevers, or worsening of medical condition. Patient was counseled about treatment plan, medications, possible side effects, patientverbalized understanding. All questions were answered to the best of my ability. This discharge took greater then 30 minutes in planning, reviewing documentation, counseling the patient, and discussing with other team members." ASSESSMENT ASSESSMENT Assessment anemia Date of Service: Feb 21, 2025 Billing Provider: VIKASH BARORN MD Common Visit Codes: 94502-IWE/OBS DISCH DAY >30min VIKASH BARRON MD Feb 21, 2025 11:46
[2025-02-21] MEDS ORDERED: METO5TAB67 PO (11:55)
[2025-02-21] MEDS ORDERED: PANT40TA2 PO (11:55)
--- NOTE | 2025-02-21 12:03 | DVHDS ---
DATE OF DISCHARGE: 02/21/2025 The patient is a 59-year-old gentleman who came in with history of tachycardia and was noted to be pale. The patient has history of end-stage renal disease on hemodialysis, previous CABG, diabetes, hypertension, left BKA, blindness, and right foot ulcer. HOSPITAL COURSE: The patient had a hemoglobin of 5 for which he was transfused blood. The patient had elevated troponin levels. He was seen in Cardiology consult by Dr. Kelly Kelly. The patient underwent coronary angiography that showed 100% occlusion of the bypass graft to the posterior descending artery. Ejection fraction was 25%. No intervention was done at that time. The patient was transfused a total of 3 units of blood. Hemoglobin at time of discharge is 8.5. The patient underwent upper endoscopy by Dr. Clemente that showed evidence of gastroparesis with a hiatal hernia. The patient was seen in Nephrology consult by Dr. Tariq and continued hemodialysis during his hospitalization. The patient will now be discharged home to resume his home medications. He is to avoid aspirin and nonsteroidals till his hemoglobin is stable. The patient will also be placed on Protonix 40 mg daily and Reglan p.r.n. I have given copies of the endoscopy and the angiogram to the patient's at the bedside. FINAL DIAGNOSES: * GI bleeding with hiatal hernia and gastroparesis. * Severe anemia, status post transfusion. * Diabetes mellitus. * Coronary artery disease, status post CABG. * Acute on chronic systolic heart failure. * Left BKA. * Obesity. * Hypertension. * Acute myocardial infarction, status post coronary angiography. * Blindness. * Right heel wound. Time spent in discharge planning and review of plan with the patient and at the bedside was 41 minutes. MD RAMBO Parker/SUBHASH TID: [id number] RECEIPT: [id number]
[2025-02-21 14:31] VITALS: BP 147/81; PULSE 78; RESP 16; TEMP 97.9; O2SAT 96
[2025-02-21 16:41] VITALS: BP 130/85; PULSE 84; RESP 16; TEMP 97.5; O2SAT 99
[2025-02-21] MEDS ORDERED: EPOETIN ALFA-EPBX 10,000 UNIT/1ML VIAL SC ONE (21:00)
--- NOTE | 2025-02-21 23:42 | DVHPN2 ---
Progress Note - Dictate Date Seen: Feb 21, 2025 Medical Necessity Reason Pt with a Central, PICC or Fol: Yes The following are medically ne: Central Line Subjective Patient was seen and evaluated in follow up. Patient complains of generalized discomfort. HGB 8.5, HCT 24.2, ON LINE CSR 5.13, GLUC 64. Telemetry reviewed. vital signs Vital Sign Date Time Temp Pulse Resp B/P (MAP) Pulse Ox O2 Delivery O2 Flow Rate FiO2 02/21/25 09:48 98.3 88 16 133/84 (100) 91 98.3 02/21/25 08:00 Room Air* 0 21 Total Intake and Output 02/20/25 02/20/25 02/21/25 15:00 23:00 07:00 Intake Total 70 ml 450 ml 400 ml Output Total 2000 ml Balance -1930 ml 450 ml 400 ml medications Current Medications Medications Dose Ordered Sig/Kerri Route Start Time Stop Time Status Last Admin Dose Admin Diagnostic Test (Pha) 1 strip ACHS 02/17/25 17:00 02/21/25 11:21 1 STRIP Insulin Human Regular ACHS SC 02/17/25 17:00 Dextrose 50 ml UD PRN IV 02/17/25 14:30 02/20/25 05:50 50 ML Nitroglycerin 0.4 mg Q5MINP PRN SL 02/17/25 16:00 Morphine Sulfate 2 mg Q30M PRN IV 02/17/25 16:00 Acetaminophen 650 mg Q6HP PRN PO 02/19/25 14:15 02/21/25 11:23 650 MG Pantoprazole Sodium 40 mg BID@0600,1700 PO 02/20/25 17:00 02/21/25 05:53 40 MG Metoclopramide HCl 5 mg Q8HR IV 02/20/25 22:00 02/21/25 05:53 5 MG Polyethylene Glycol 17 gm DAILY PO 02/21/25 10:00 02/21/25 09:38 17 GM objective GENERAL: Alert and oriented x 3. No acute distress. EYES: PERRL, EOMI. Anicteric. HENT: Moist mucous membranes. LUNGS: Clear to auscultation bilaterally. CARDIOVASCULAR: Regular rate and rhythm. ABDOMEN: Soft, nontender and nondistended. EXTREMITIES: Left AKA. NEUROLOGIC: No focal neurological deficits. SKIN: Warm, dry. laboratory and microbiology Laboratory Tests 02/21/25 06:22 Test 02/21/25 06:22 Range/Units Serum Glucose 64 L 74-106 mg/dL Problem List STEMI. Generalized weakness. GI bleed. Hypertension. Type 2 DM. ESRD on hemodialysis. Assessment/Plan Continued all current supportive medical care. Nitro SL. GI prophylactics. Tylenol and Morphine for pain management. Additional plan as per the hospital course. Dietary Evaluation Review Comments: 1) Encourage optimal PO intake 2) Advance to 60g [facility] renal cardiac diet when medically feasible 3) Refer to outpatient RD/[facility] for weight management 4) Follow-up with cardiology, pulmonology, nephrology, and gastroenterology 4) Continue to monitor I&O, labs, and skin integrity Expected Outcomes/Goals: 1) appetite and labs to improve 2) diet to advance 3) GI symptoms to resolve 4) f/u in 3-5 days Plan discussed with: Patient CHU NIELSEN MD Feb 21, 2025 13:38
== END 2025-02-21 17:04 | disposition home or self-care (01) | DRG 280 ==
LOC: ER 13:36 → EDBD 13:36 → OVERFLOW 15:46 → DOU 17:52 → TELE-WESTW 02-20 15:58
PROVIDERS: ADMIT Internal Medicine; ATTEND Internal Medicine
PROC: 04HY32Z Insertion of Monitoring Device into Lower Artery, Percutaneous Approach (ICD-10-PCS; principal; 2025-02-17)
PROC: 30233N1 Transfusion of Nonautologous Red Blood Cells into Peripheral Vein, Percutaneous Approach (ICD-10-PCS; 2025-02-17)
PROC: B41FYZZ Fluoroscopy of Right Lower Extremity Arteries using Other Contrast (ICD-10-PCS; 2025-02-17)
PROC: 4A023N7 Measurement of Cardiac Sampling and Pressure, Left Heart, Percutaneous Approach (ICD-10-PCS; 2025-02-17)
PROC: B211YZZ Fluoroscopy of Multiple Coronary Arteries using Other Contrast (ICD-10-PCS; 2025-02-17)
PROC: B215YZZ Fluoroscopy of Left Heart using Other Contrast (ICD-10-PCS; 2025-02-17)
PROC: B213YZZ Fluoroscopy of Multiple Coronary Artery Bypass Grafts using Other Contrast (ICD-10-PCS; 2025-02-17)
PROC: 02HV33Z Insertion of Infusion Device into Superior Vena Cava, Percutaneous Approach (ICD-10-PCS; 2025-02-17)
PROC: 0DJ08ZZ Inspection of Upper Intestinal Tract, Via Natural or Artificial Opening Endoscopic (ICD-10-PCS; 2025-02-18)
PROC: 5A1D70Z Performance of Urinary Filtration, Intermittent, Less than 6 Hours Per Day (ICD-10-PCS; 2025-02-18)
PROC: 0DB98ZX Excision of Duodenum, Via Natural or Artificial Opening Endoscopic, Diagnostic (ICD-10-PCS; 2025-02-20)
PROC: 0DB68ZX Excision of Stomach, Via Natural or Artificial Opening Endoscopic, Diagnostic (ICD-10-PCS; 2025-02-20)
PROC: 5A1D70Z Performance of Urinary Filtration, Intermittent, Less than 6 Hours Per Day (ICD-10-PCS; 2025-02-20)
DX: I21.29 ST elevation (STEMI) myocardial infarction involving other sites (principal); I50.23 Acute on chronic systolic (congestive) heart failure; N18.6 End stage renal disease; K92.2 Gastrointestinal hemorrhage, unspecified; I13.2 Hypertensive heart and chronic kidney disease with heart failure and with stage 5 chronic kidney disease, or end stage renal disease; E11.22 Type 2 diabetes mellitus with diabetic chronic kidney disease; E11.319 Type 2 diabetes mellitus with unspecified diabetic retinopathy without macular edema; D50.0 Iron deficiency anemia secondary to blood loss (chronic); I25.10 Atherosclerotic heart disease of native coronary artery without angina pectoris; K44.9 Diaphragmatic hernia without obstruction or gangrene; E66.9 Obesity, unspecified; S91.301A Unspecified open wound, right foot, initial encounter; E11.43 Type 2 diabetes mellitus with diabetic autonomic (poly)neuropathy; H54.8 Legal blindness, as defined in USA; K31.84 Gastroparesis; Z89.512 Acquired absence of left leg below knee; Z89.612 Acquired absence of left leg above knee; Z88.8 Allergy status to other drugs, medicaments and biological substances; Z68.32 Body mass index [BMI] 32.0-32.9, adult; Z99.2 Dependence on renal dialysis; Z95.1 Presence of aortocoronary bypass graft; Z79.899 Other long term (current) drug therapy; X58.XXXA Exposure to other specified factors, initial encounter; Y93.89 Activity, other specified; Y92.89 Other specified places as the place of occurrence of the external cause; Y99.8 Other external cause status
CPT/HCPCS: 36415; 36556; 71045; 80048; 80053; 82040; 82270; 82962; 83036; 83540; 83550; 84484; 85014; 85018; 85025; 85610; 85730; 86850; 86900; 86901; 86920; 87340; 90935; 93005; 96365; 99152; 99291; G0378; J2003; J2250; J2470; J2704; Q9967

== ENCOUNTER 2025-04-09 16:04 | Emergency (ER) | payer OTHER ==
[~2025-04-09] VITALS: Ht 177.8 cm; Wt 93.0 kg
[~2025-04-09 16:04] MED LIST: METO5TAB67 PO; PANT40TA2 PO
--- NOTE | 2025-04-09 16:29 | ED.PDOC ---
History of Present Illness HPI Comments 59M BIBA w/ prior MHx of DM, HTN, Completely Blind, ESRD (T,,Sat);SHx of CABG- triple bypass, Left Sided BKA and the c/c of gen weak. EMS report the pt having had generalized weakness which started on of 04/05/25 and missed Saturdays dialysis due from the weakness. Pt had 1 episode of son helping pt get off of the toilet due from the weakness. Denies any other symptoms at this time. Denies chills, fever, N/V/D, SOB, CP. Denies any other associated symptom's, modifiers, or recent injuries or sick contact at this time. Chief Complaint: General Weakness Time Seen by MD: 16:25 Reviewed Notes: Nurses Notes, Medications, Allergies Allergies: Coded Allergies: Penicillins (Verified Allergy, Severe, 04/09/25) Methoxyl Polyethylene Glycol-Epoeti (Verified Allergy, Intermediate, URTICARIA, 02/17/25) Home Meds Active Scripts Pantoprazole Sodium Sesquihydr (Protonix) 40 Mg Tab, 40 MG PO DAILY for 30 Days, #30 TAB 1 Refill Prov:VIKASH BARRON MD 02/21/25 Metoclopramide Hcl (Reglan) 5 Mg Tab, 5 MG PO TIDP PRN for 10 Days, #30 TAB Prov:VIKASH BARRON MD 02/21/25 Information Source: Patient, Emergency Med Personnel Mode of Arrival: EMS Severity: Moderate Timing: Days Duration: Since onset, Days Prehospital treatment: None Past Medical History PAST MEDICAL HISTORY: DM, ESRD (T, , Sat), HTN Past Medical History (Other): Blind Surgical History: BKA (left sided), CABG Family History Family History: Reviewed,noncontributory to illness, Unknown Social History Smoker: Non-Smoker Alcohol: Denies ETOH Use Drugs: Denies Drug Use Lives In: Home Constitutional: reports: weakness; denies: chills, diaphoresis, fatigue, fever, malaise, sweats, others EENTM: denies: blurred vision, double vision, ear bleeding, ear discharge, ear drainage, ear pain, ear ringing, eye pain, eye redness, hearing loss, mouth pain, mouth swelling, nasal discharge, nose bleeding, nose congestion, nose pain, photophobia, tearing, throat pain, throat swelling, voice changes, others Respiratory: denies: cough, hemoptysis, orthopnea, SOB at rest, shortness of breath, SOB with excertion, stridor, wheezing, others Cardiovascular: denies: chest pain, dizzy spells, diaphoresis, Dyspnea on exertion, edema, irregular heart beat, left arm pain, lightheadedness, palpitations, PND, syncope, others Gastrointestinal: denies: abdomen distended, abdominal pain, blood streaked bowels, constipated, diarrhea, dysphagia, difficulty swallowing, hematemesis, melena, nausea, poor appetite, poor fluid intake, rectal bleeding, rectal pain, vomiting, others Genitourinary: denies: burning, dysuria, flank pain, frequency, hematuria, incontinence, penile discharge, penile sore, pain, testicle pain, testicle swelling, urgency, others Neurological: denies: dizziness, fainting, headache, left sided numbness, left sided weakness, numbness, paresthesia, pre-existing deficit, right sided numbness, right sided weakness, seizure, speech problems, tingling, tremors, weakness, others Musculoskeletal: denies: back pain, gout, joint pain, joint swelling, muscle pain, muscle stiffness, neck pain, others Integumetry: denies: bruises, change in color, change in hair/nails, dryness, laceration, lesions, lumps, rash, wounds, others Allergic/Immunocompromised: denies: Difficulty Healing, Frequent Infections, Hives, Itching, others Hematologic/Lymphatic: denies: anemia, blood clots, easy bleeding, easy bruising, swollen glands, others Endocrine: denies: excessive hunger, excessive sweating, excessive thirst, excessive urination, flushing, intolerance to cold, intolerance to heat, unexplained weight gain, unexplained weight loss, others Psychiatric: denies: anxiety, bipolar disorder, depression, hopeless, panic disorder, schizophrenia, sleepless, suicidal, others All Other Systems: Reviewed and Negative Physical Exam Exam Comments -1 leg LLE BKA General Appearance: No Apparent Distress, Normal HEENT: Normal ENT Inspection, Pharynx Normal, TMs Normal Neck: Full Range of Motion, Non-Tender, Normal, Normal Inspection Respiratory: Chest Non-Tender, Lungs Clear, No Accessory Muscle Use, No Respiratory Distress, Normal Breath Sounds Cardiovascular: No Edema, No JVD, No Murmur, No Gallop, Normal Peripheral Pulses, Regular Rate/Rhythm Breast Exam: Deferred Gastrointestinal: No Organomegaly, Non Tender, No Pulsatile Mass, Normal Bowel Sounds, Soft Genitalia: Deferred Pelvic: Deferred Rectal: Deferred Extremities: No calf tenderness, Normal capillary refill, Normal inspection, Normal range of motion, Non-tender, No pedal edema Musculoskeletal : Apperance: Normal Neurologic: Alert, senior programmer II-XII nml as Tested, No Motor Deficits, Normal Affect, Normal Mood, No Sensory Deficits Cerebellar Function: Normal Reflexes: Normal Skin: Dry, Normal Color, Warm Lymphatic: No Adenopathy Was a procedure done? Was a procedure done?: No Differential Dx Considerations may include: na X-Ray, Labs, Meds, VS Vital Signs Date Time Temp Pulse Resp B/P (MAP) Pulse Ox O2 Delivery O2 Flow Rate FiO2 04/09/25 19:47 98.1 82 16 163/90 (114) 100 98.1 04/09/25 16:14 84 04/09/25 16:13 98.0 86 16 163/83 97 98.0 Lab Test 04/09/25 19:32 04/09/25 17:42 04/09/25 16:38 Range/Units Troponin I High Sensitivity 88 *H 51 54 </=54 ng/L Sodium Level 134 L 136-145 mmol/L Potassium Level 4.3 3.5-5.1 mmol/L Chloride Level 91 L 98-107 mmol/L Carbon Dioxide Level 22 20-31 mmol/L Anion Gap 21 H 5-15 Blood Urea Nitrogen 30 H 9-23 mg/dL Creatinine 7.88 H 0.700-1.30 mg/dL Glomerular Filtration Rate Calc 7 >90 mL/min BUN/Creatinine Ratio 3.8 L 10.0-20.0 Serum Glucose 78 74-106 mg/dL Calcium Level 8.5 L 8.7-10.4 mg/dL Total Bilirubin 0.5 0.2-1.0 mg/dL Aspartate Amino Transferase (AST) 104 H 13-40 U/L Alanine Aminotransferase (ALT) 58 H 7-40 U/L Alkaline Phosphatase 181 H 46-116 U/L Total Protein 6.3 5.7-8.2 g/dL Albumin 2.7 L 3.2-4.8 g/dL White Blood Count 6.4 4.4-10.8 10^3/uL Red Blood Count 3.38 L 4.5-5.90 10^6/uL Hemoglobin 11.4 L 13.5-17.5 g/dL Hematocrit 33.8 L 41.0-53.0 % Mean Corpuscular Volume 100.2 H 80.0-100.0 fL Mean Corpuscular Hemoglobin 33.7 H 28.0-32.0 pg Mean Corpuscular Hemoglobin Concent 33.6 32.0-36.0 g/dL Red Cell Distribution Width 19.2 H 11.8-14.3 % Platelet Count 278 140-450 10^3/uL Mean Platelet Volume 8.1 6.9-10.8 fL Neutrophils (%) (Auto) 71.1 37.0-80.0 % Lymphocytes (%) (Auto) 18.6 10.0-50.0 % Monocytes (%) (Auto) 7.0 0.0-12.0 % Eosinophils (%) (Auto) 2.1 0.0-7.0 % Basophils (%) (Auto) 1.2 0.0-2.0 % Neutrophils # (Auto) 4.5 1.6-8.6 10 ^3/uL Lymphocytes # (Auto) 1.2 0.4-5.4 10 ^3/uL Monocytes # (Auto) 0.5 0-1.3 10 ^3/uL Eosinophils # (Auto) 0.1 0-0.8 10 ^3/uL Basophils # (Auto) 0.1 0-0.2 10 ^3/uL Nucleated Red Blood Cells 0.1 % X-Ray, Labs, Meds, VS Comment Spoke with Dr. Summers and [facility], they accept transfer we will call back with facility placement. Authorization [id number] Patient hemodynamically stable Patient states no complaints of chest pain. Or repeat EKG Patient to be given 325 aspirin Time of 1ST Reevaluation: 16:55 Reevaluation 1ST: Unchanged Time of 2ND Reevaluation: 22:16 Reevaluation 2ND: Unchanged (Patient AMA, explained the risks of as he has not had dialysis. Explained elevated troponins. Patient states he does not want to go to [place] and would prefer to leave against medical advice and find a different facility. Patient is seen exiting the building.) Patient Education/Counseling: Diagnosis, Treatment, Prognosis Family Education/Counseling: No Family Present SEPSIS Sepsis Screen Date sepsis recognized/suspect: Apr 09, 2025 Time Sepsis recognized/suspect: 1615 Recent Procedure: No On Antibiotic Therapy: No Respiratory Rate >20: No Heart Rate >90: No Temp<36 C (96.8 F) or >38.3 C: No SBP <90 or MAP <65 mmHG: No New Acute Mental Status Change: No Is the patient on CPAP, BIPAP,: No Physician Orders Chest Portable (04/09/25 16:24) Urinalysis (04/09/25 16:24) Electrocardigram (04/09/25 21:11) Imaging Transfer Request (04/09/25 21:24) Vital Signs Date Time Temp Pulse Resp B/P (MAP) Pulse Ox O2 Delivery O2 Flow Rate FiO2 04/09/25 19:47 98.1 82 16 163/90 (114) 100 98.1 04/09/25 16:14 84 04/09/25 16:13 98.0 86 16 163/83 97 98.0 Laboratory Tests Test 04/09/25 16:38 White Blood Count 6.4 10^3/uL (4.4-10.8) Departure 1 Departure Time of Disposition: 22:16 Impression: Primary Impression: Elevated troponin Additional Impressions: End stage kidney disease Generalized weakness Disposition: 07 LEFT AGAINST MEDICAL ADVICE Condition: Stable Critical Care Note Critical Care Time?: No Stability Stability form required: No I personally scribed for MARTHA CHEN ([email or web address]) on 04/09/25 at 16:28. Electronically submitted by Ajay Duckworht ([email or web address]). MARTHA CHEN Apr 09, 2025 16:28
--- NOTE | 2025-04-09 16:59 | ECG ---
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
[2025-04-09 17:01] LABS: Hematocrit 33.8 % (41.0-53.0); Hemoglobin 11.4 g/dL (13.5-17.5); Mean Corpuscular Hemoglobin 33.7 pg (28.0-32.0); Mean Corpuscular Volume 100.2 fL (80.0-100.0); Nucleated Red Blood Cells % 0.1 %
--- NOTE | 2025-04-09 17:09 | DVH ---
CHEST RADIOGRAPH Indication: gen weak Technique: Single frontal view of the chest was obtained Comparison: XY CHEST PORTABLE on DOS: 02/20/25, XY CHEST PORTABLE on DOS: 02/17/25 FINDINGS: Lines and Tubes: Sternal wire sutures are in place. Lungs: Right lower lobe atelectasis or airspace disease. Pleura: No effusion. No pneumothorax. Cardiomediastinal contours: Unremarkable Bones: No acute osseous abnormality. IMPRESSION: 1. No acute cardiopulmonary disease.
[2025-04-09 19:47] VITALS: BP 163/90; PULSE 82; RESP 16; TEMP 98.1; O2SAT 100
[2025-04-09 20:04] LABS: Anion Gap 21 (5-15); BUN/Creatinine Ratio 3.8 (10.0-20.0); Carbon Dioxide 22 mmol/L (20-31); Glucose 78 mg/dL (74-106); Potassium 4.3 mmol/L (3.5-5.1); Total Protein 6.3 g/dL (5.7-8.2)
[2025-04-09 20:05] LABS: Bilirubin, Total 0.5 mg/dL (0.2-1.0)
[2025-04-09 20:13] LABS: Alanine Aminotransferase 58 U/L (7-40); Albumin 2.7 g/dL (3.2-4.8); Alkaline Phosphatase 181 U/L (46-116); Blood Urea Nitrogen 30 mg/dL (9-23); Calcium 8.5 mg/dL (8.7-10.4); Chloride 91 mmol/L (98-107); Sodium 134 mmol/L (136-145)
== END 2025-04-09 21:55 | disposition left against medical advice (07) ==
LOC: ER 16:04 → EDBD 16:04 → ER 21:53
DX: I12.0 Hypertensive chronic kidney disease with stage 5 chronic kidney disease or end stage renal disease (principal); E11.22 Type 2 diabetes mellitus with diabetic chronic kidney disease; N18.6 End stage renal disease; R79.89 Other specified abnormal findings of blood chemistry; Z79.899 Other long term (current) drug therapy; Z89.512 Acquired absence of left leg below knee; Z95.1 Presence of aortocoronary bypass graft; Z88.0 Allergy status to penicillin; Z99.2 Dependence on renal dialysis
CPT/HCPCS: 36415; 71045; 80053; 84484; 85025; 93005

== ENCOUNTER 2025-04-23 14:11 | Emergency (ER) | payer OTHER ==
[~2025-04-23] VITALS: Ht 175.3 cm; Wt 92.0 kg
--- NOTE | 2025-04-23 15:13 | ED.PDOC ---
History of Present Illness HPI Comments Mr. Paige is a 59-year-old male with prior medical history of type 2 diabetes mellitus, CAD status post CABG in 2018, ESRD on dialysis Wednesday//Wednesday schedule, left BKA, and hyperlipidemia, who presents today BIBA with chief complaint of generalized weakness.The patient states that since Wednesday after dialysis he has been feeling lethargic and nauseous. Additionally refers that due to his immobility has developed a wound on his right gluteal region, which has become increasingly more painful the last few days, intensity 02/21, he is unsure if there is any purulence or discharge. Per his at bedside, states he has been suddenly declining since April 10, 2025 after a recent hospitalization due to fluid overload. She states that he before he would ambulate small steps and was more active, since then he has been too weak. On initial evaluation, the patient seems weak, vitals a stable, with no overt signs of distress. Chief Complaint: General Weakness Time Seen by MD: 15:15 Allergies: Coded Allergies: Penicillins (Verified Allergy, Severe, 04/09/25) Methoxyl Polyethylene Glycol-Epoeti (Verified Allergy, Intermediate, URTICARIA, 02/17/25) Home Meds Active Scripts Pantoprazole Sodium Sesquihydr (Protonix) 40 Mg Tab, 40 MG PO DAILY for 30 Days, #30 TAB 1 Refill Prov:VIKASH BARRON MD 02/21/25 Metoclopramide Hcl (Reglan) 5 Mg Tab, 5 MG PO TIDP PRN for 10 Days, #30 TAB Prov:VIKASH BARRON MD 02/21/25 Information Source: Patient Mode of Arrival: EMS Severity: Moderate Timing: Days Duration: Since onset Past Medical History PAST MEDICAL HISTORY: CAD, DM, ESRD, High Lipids, HTN Surgical History: BKA, CABG Family History Family History: Reviewed,noncontributory to illness Social History Smoker: Non-Smoker Alcohol: Denies ETOH Use Drugs: Denies Drug Use Lives In: Home Constitutional: reports: weakness; denies: chills, diaphoresis, fatigue, fever, malaise, sweats EENTM: reports: eye redness; denies: blurred vision, double vision, ear ringing, mouth pain, nasal discharge, nose congestion Respiratory: denies: cough, hemoptysis, orthopnea, SOB at rest, shortness of breath, SOB with excertion Cardiovascular: denies: chest pain, dizzy spells, diaphoresis, Dyspnea on exertion, edema, irregular heart beat, left arm pain, lightheadedness, palpitations, syncope Gastrointestinal: reports: poor appetite, poor fluid intake; denies: abdomen distended, abdominal pain, blood streaked bowels, constipated, diarrhea, dysphagia, difficulty swallowing, hematemesis, melena, nausea, rectal bleeding, vomiting Genitourinary: denies: burning, dysuria, flank pain, frequency, hematuria, incontinence, pain, urgency Neurological: reports: tingling; denies: dizziness, fainting, headache, numbness, paresthesia, pre-existing deficit, seizure, speech problems, weakness Musculoskeletal: denies: back pain, joint pain, joint swelling, muscle pain, muscle stiffness, neck pain Integumetry: reports: wounds (Right gluteal wound and pain ) Physical Exam General Appearance: Moderate Distress, Obese HEENT: Normal ENT Inspection, Pharynx Normal, Other (Patient is blind, pupils minimally reactive) Neck: Full Range of Motion, Non-Tender, Normal Inspection Respiratory: Chest Non-Tender, No Accessory Muscle Use, No Respiratory Distress, Normal Breath Sounds Cardiovascular: No Edema, No Murmur, Regular Rate/Rhythm, Other (Pulses are present but decreased in right foot ) Breast Exam: Deferred Gastrointestinal: Non Tender, No Pulsatile Mass, Normal Bowel Sounds, Soft Genitalia: Deferred Pelvic: Deferred Rectal: Deferred Extremities: Other (Presence of fistula in inner right arm with palpable trill, Acquired absence of Left leg below the knee, Right calf with dry skin, presence of a foot ulcer on the plantar surface of the right heel, presence of thick serosanguienous discharge observed, surrounding redness and induration is noted, no pain on palaption,) Neurologic: Alert, Depressed Affect Cerebellar Function: NOT DONE Reflexes: NOT DONE Skin: Other (As above, presence of sacral redness and edema with associated skin breakdown, no discharge is observed, painful to palpation) Peripheral Pulses: 2+ dorsalis pedis (R) Lymphatic: Other (No cervical adenopathy is noted ) Was a procedure done? Was a procedure done?: No Differential Dx Considerations may include: Generalized weakness, sepsis, anemia, electrolyte imbalance, pneumonia, influenza, cellulitis, osteomyelitis X-Ray, Labs, Meds, VS Vital Signs Date Time Temp Pulse Resp B/P (MAP) Pulse Ox O2 Delivery O2 Flow Rate FiO2 04/23/25 18:00 75 17 115/75 (88) 96 04/23/25 15:30 Room Air* 0 21 04/23/25 15:30 97.3 82 17 138/70 (92) 97 97.3 04/23/25 14:19 84 04/23/25 14:17 97.9 83 18 145/87 98 97.9 Lab Test 04/23/25 16:58 04/23/25 16:00 Range/Units Troponin I High Sensitivity Pending 31 </=54 ng/L White Blood Count 8.1 4.4-10.8 10^3/uL Red Blood Count 3.33 L 4.5-5.90 10^6/uL Hemoglobin 11.4 L 13.5-17.5 g/dL Hematocrit 35.1 L 41.0-53.0 % Mean Corpuscular Volume 105.5 H 80.0-100.0 fL Mean Corpuscular Hemoglobin 34.1 H 28.0-32.0 pg Mean Corpuscular Hemoglobin Concent 32.3 32.0-36.0 g/dL Red Cell Distribution Width 18.9 H 11.8-14.3 % Platelet Count 317 140-450 10^3/uL Mean Platelet Volume 8.1 6.9-10.8 fL Neutrophils (%) (Auto) 80.5 H 37.0-80.0 % Lymphocytes (%) (Auto) 9.9 L 10.0-50.0 % Monocytes (%) (Auto) 8.8 0.0-12.0 % Eosinophils (%) (Auto) 0.6 0.0-7.0 % Basophils (%) (Auto) 0.2 0.0-2.0 % Neutrophils # (Auto) 6.5 1.6-8.6 10 ^3/uL Lymphocytes # (Auto) 0.8 0.4-5.4 10 ^3/uL Monocytes # (Auto) 0.7 0-1.3 10 ^3/uL Eosinophils # (Auto) 0 0-0.8 10 ^3/uL Basophils # (Auto) 0 0-0.2 10 ^3/uL Nucleated Red Blood Cells 0.4 % Sodium Level 134 L 136-145 mmol/L Potassium Level 4.4 3.5-5.1 mmol/L Chloride Level 91 L 98-107 mmol/L Carbon Dioxide Level 30 20-31 mmol/L Anion Gap 13 5-15 Blood Urea Nitrogen 11 9-23 mg/dL Creatinine 5.39 H 0.700-1.30 mg/dL Glomerular Filtration Rate Calc 11 >90 mL/min BUN/Creatinine Ratio 2.0 L 10.0-20.0 Serum Glucose 76 74-106 mg/dL Lactic Acid Level 1.2 0.4-2.0 mmol/L Calcium Level 9.0 8.7-10.4 mg/dL Current Medications Medications (Trade) Dose Ordered Sig/Kerri Route Start Time Stop Time Status Last Admin Ceftriaxone Sodium 50 ml @ 100 mls/hr ONCE ONCE IV 04/23/25 17:30 04/23/25 17:59 DC 04/23/25 17:53 Time of 1ST Reevaluation: 17:00 Reevaluation 1ST: Unchanged Patient Education/Counseling: Diagnosis, Treatment Family Education/Counseling: Diagnosis, Treatment Comments The patient presents today due to generalized weakness On initial evaluation, the patient seems weak, is afebrile, vitals are stable Physical evaluation is positive for sacral edema and erythema with skin breakdown painful to the touch, ulcer on the plantar surface of the right foot, surrounding by erythema, with serosanguineous discharge. CBC shows macrocytic anemia and neutrophilia , BMP mild hyponatremia, creatinine 5.11, Lactic acid is 1.2 UA was not ordered as the patient is anuric. Xray of the right foot shows bony resorptive changes involving the 1st distal phalanx with extensive atherosclerosis and soft tissue swelling. Osteomyelitis can not be excluded. Chest Xray shows cardiomegaly. He was started on Ceftrixone 1 g IV and Vancomycin 1 g IV. ACetaminophen 650 mg PO has been given due to pain. On reevaluation, the patient is stable. The patient requires in patient admission for further work up and management. He is stable for transfer to [place]. I have spoken with Dr. Dolan from [place] to arrange transfer. The patient has been accepted for transfer to [facility] with accepting physician being Dr. Kelly. Case # [id number] SEPSIS Sepsis Screen Date sepsis recognized/suspect: Apr 23, 2025 Time Sepsis recognized/suspect: 1419 Recent Procedure: No On Antibiotic Therapy: No Respiratory Rate >20: No Heart Rate >90: No Temp<36 C (96.8 F) or >38.3 C: No SBP <90 or MAP <65 mmHG: No New Acute Mental Status Change: No Is the patient on CPAP, BIPAP,: No Physician Orders Blood Culture (04/23/25 15:09) R Foot 2 View Xray (04/23/25 15:09) Troponin-I Hs (04/23/25 16:09) Chest Xray 1 View (04/23/25 17:20) Vancomycin 1gm/250ml Kit (04/23/25 17:30) Imaging Transfer Request (04/23/25 18:08) Acetaminophen Tablet (Tylenol Tablet) (04/23/25 18:15) Vital Signs Date Time Temp Pulse Resp B/P (MAP) Pulse Ox O2 Delivery O2 Flow Rate FiO2 04/23/25 18:00 75 17 115/75 (88) 96 04/23/25 15:30 Room Air* 0 21 04/23/25 15:30 97.3 82 17 138/70 (92) 97 97.3 04/23/25 14:19 84 04/23/25 14:17 97.9 83 18 145/87 98 97.9 Laboratory Tests Test 04/23/25 16:00 Lactic Acid Level 1.2 mmol/L (0.4-2.0) White Blood Count 8.1 10^3/uL (4.4-10.8) Medications Medications Dose Ordered Sig/Kerri Route Start Time Stop Time Status Last Admin Dose Admin Ceftriaxone Sodium 50 ml @ 100 mls/hr ONCE ONCE IV 04/23/25 17:30 04/23/25 17:59 DC 04/23/25 17:53 Departure 1 Departure Time of Disposition: 18:15 Impression: Primary Impression: Generalized weakness Disposition: 02 SHORT TERM HOSPITAL Condition: Stable Critical Care Note Critical Care Time?: No Stability Stability form required: GAYLA John RESIDENT Apr 23, 2025 15:12
--- NOTE | 2025-04-23 15:49 | DVH ---
EXAM: XY R FOOT 2 VIEW XRAY CLINICAL INDICATION: rule out osteomylelitis TECHNIQUE: XY R FOOT 2 VIEW XRAY Comparison: None FINDINGS/IMPRESSION: Bony resorptive changes involving the 1st distal phalanx with extensive atherosclerosis and soft tissue swelling. Osteomyelitis can not be excluded. Consider MRI.
[2025-04-23 16:29] LABS: Hematocrit 35.1 % (41.0-53.0); Hemoglobin 11.4 g/dL (13.5-17.5); Mean Corpuscular Hemoglobin 34.1 pg (28.0-32.0); Mean Corpuscular Volume 105.5 fL (80.0-100.0); Nucleated Red Blood Cells % 0.4 %
[2025-04-23 16:33] LABS: Potassium 4.4 mmol/L (3.5-5.1)
--- NOTE | 2025-04-23 16:33 | ECG ---
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
[2025-04-23 16:34] LABS: Anion Gap 13 (5-15); Calcium 9.0 mg/dL (8.7-10.4); Carbon Dioxide 30 mmol/L (20-31)
[2025-04-23 16:39] LABS: BUN/Creatinine Ratio 2.0 (10.0-20.0); Blood Urea Nitrogen 11 mg/dL (9-23); Glucose 76 mg/dL (74-106)
[2025-04-23 16:48] LABS: Chloride 91 mmol/L (98-107); Sodium 134 mmol/L (136-145)
--- NOTE | 2025-04-23 17:52 | DVH ---
AP portable chest CLINICAL INDICATION: gen weakness FINDINGS: Heart size is enlarged. The aorta is tortuous. Mild atelectasis in the right base due to suboptimal inspiratory effort. Sternotomy sutures are seen overlying the midline IMPRESSION: 1. Cardiomegaly.
[2025-04-23] MEDS: ACETAMINOPHEN 325 MG TAB PO ONE (18:30)
[2025-04-23] MEDS: VANCOMYCIN 1GM/250ML KIT 250 ML IV ONE (19:00)
[2025-04-23 19:58] VITALS: BP 123/56; RESP 19; O2SAT 95
[2025-04-23 20:01] VITALS: TEMP 98.6
[2025-04-23 20:05] VITALS: PULSE 81
== END 2025-04-23 20:46 | disposition short-term general hospital (02) ==
LOC: EDUNIT# 14:11 → ER 14:11 → EDBD 14:11 → ER 20:46
DX: R53.1 Weakness (principal); I13.11 Hypertensive heart and chronic kidney disease without heart failure, with stage 5 chronic kidney disease, or end stage renal disease; E11.22 Type 2 diabetes mellitus with diabetic chronic kidney disease; N18.6 End stage renal disease; E78.5 Hyperlipidemia, unspecified; Z79.899 Other long term (current) drug therapy; Z88.0 Allergy status to penicillin
CPT/HCPCS: 36415; 71045; 73620; 80048; 82947; 83605; 84484; 85025; 87040; 93005; 96365; 96367; 99285; J0696; J3373; 82962